=== PATIENT | female | born 1950 | race Caucasian/White ===

== ENCOUNTER → 2017-09-09 | Outpatient (CLI) | payer BC ==
[2017-09-09] MEDS: REGADENOSON 0.4 MG/5 ML DISP.SYRIN. IV (11:27)
== END | disposition home or self-care (01) ==
LOC: NM 09:31
DX: R07.89 Other chest pain (principal); R06.09 Other forms of dyspnea; I10 Essential (primary) hypertension
CPT/HCPCS: 78452; 93017; 96374; 96375; 96376; A9500; J2785

== ENCOUNTER → 2017-10-22 | Outpatient (CLI) | payer BC | END | disposition home or self-care (01) | LOC: ECHO 13:44 | DX: I07.1 Rheumatic tricuspid insufficiency (principal); R06.00 Dyspnea, unspecified | CPT/HCPCS: 93306 ==

== ENCOUNTER → 2017-11-16 | Outpatient (CLI) | payer BC | END | disposition home or self-care (01) | LOC: SLPLAB 18:33 | DX: R06.83 Snoring (principal); I10 Essential (primary) hypertension | CPT/HCPCS: 95810 ==

== ENCOUNTER → 2019-06-27 | Outpatient (CLI) | payer BC ==
[~2019-06-27] MED LIST: AMLO5TAB10 PO; IOHEXOL 180 MG/ML 10 ML VIAL. IT ONE; LIDOCAINE 1% Multi-Dose 20 ML VIAL. ID ONE; LOSA25TA54 PO; PRAV10TA2 PO
--- NOTE | 2019-06-27 16:38 | KCIC ---
CT lumbar spine exam History: Lumbar spondylolisthesis, severe back pain, previous fusion Technique: CT imaging was performed of the lumbar spine after injection for lumbar myelogram. Multiplanar reconstruction images are submitted. Exposure: One or more of the following individualized dose reduction techniques were utilized for this examination: 1. Automated exposure control 2. Adjustment of the mA and/or kV according to patient size 3. Use of iterative reconstruction technique. Comparison: May 18, 2019 outside facility MRI lumbar spine exam Findings: Lumbar vertebral body stature is maintained. There is grade 1 anterior spondylolisthesis at L5-S1, very minimal posterior subluxation L3 relative L4. Conus terminates at L1-2. Most inferior fully formed intervertebral disc space is considered L5-S1 for this report, tiny ribs bilaterally at what is considered T12. There is vacuum disc disease L2-3 L5-S1. There is moderate to severe narrowing L5-S1 intervertebral disc space, mild to moderate narrowing at L3-4 and to lesser degree at L2-3 and L4-5. There is scattered calcified plaque of the abdominal aorta, also near the origin of the left renal artery. Calcified plaque resulting in more significant stenosis of the left common iliac artery, lesser degree of narrowing of the right common iliac artery. Not fully included, there is also ectasia of the infrarenal abdominal aorta greater distally. T12-L1: Neural foramina and spinal canal are adequate. L1-L2: There is mild bilateral facet hypertrophic change. There is minimal disc osteophyte complex. Spinal canal and neural foramina are adequate. L2-L3: There is minimal disc osteophyte complex, spinal canal adequate. There is mild to moderate facet degenerative change and minimal buckling of the ligamentum flavum. Left neural foramen is overall adequate. There is mild narrowing of the right neural foramen in part from disc osteophyte complex. L3-L4: There is mild to moderate facet degenerative change and mild buckling of the ligamentum flavum. There is disc osteophyte complex slightly indenting the ventral thecal sac, spinal canal not significantly narrowed. Left neural foramen is overall adequate, minimal disc osteophyte complex inferiorly. There is [id number] narrowing of the right neural foramen by facet osteophyte and disc osteophyte complex, contact of the undersurface exiting right L3 nerve root. L4-L5: There is left laminectomy defect. There is [id number], right greater than left facet degenerative change. There is minimal disc osteophyte complex. Spinal canal is overall adequate. Disc osteophyte complex contributes to moderate narrowing of the left neural foramen, contact undersurface exiting left L4 nerve root greater in the distal left neural foramen as well as contacted in the proximal extraforaminal region. There is mild narrowing of the right neural foramen. L5-S1: There is facet degenerative change greater on the right. Spinal canal is adequate. There is left laminectomy defect. There is partial uncovering of the posterior aspect of the disc due to spondylolisthesis, superimposed disc osteophyte complex in the inferior neural foramina. There is [id number]-jp-[id number] narrowing of the inferior left neural foramen, disc osteophyte complex near the undersurface exiting left L5 nerve root greater in the distal neural foramen. There is moderate to severe narrowing of the inferior right neural foramen by disc osteophyte complex with contact undersurface exiting right L5 nerve root. Impression: 1. Most inferior fully formed intervertebral disc space is considered L5-S1 for this report. There is multilevel lumbar degenerative disease with vacuum phenomenon, greatest at L5-S1. There is no significant lumbar spinal stenosis. There is multilevel neural foramina compromise as stated greatest on the right at L5-S1, to lesser degree on the left at L5-S1 and L4-5 and on the right at L3-4. There is grade 1 anterior spondylolisthesis at L5-S1 and very mild posterior subluxation L3 relative to L4. 2. Calcified plaque results in stenoses of the common iliac arteries bilaterally greater on the left. Electronically signed by: Piyush Currie MD (06/27/2019 4:35 PM) [email or web address]
--- NOTE | 2019-06-27 16:39 | KCIC ---
Lumbar Myelogram History: Lumbar spondylolisthesis Technique: Patient was informed of the risks of the procedure to include pain, infection, bleeding, seizures, nerve root injury, and allergic reaction to the contrast. All questions were answered. Patient signed a written consent form for a lumbar myelogram. The patient was placed in a prone oblique position on the fluoroscopy table. External site of the lower back was prepped and draped in the usual sterile fashion. Betadine was utilized for cleansing solution. 1% lidocaine was utilized for local anesthesia at the anticipated site of puncture right L2-3 interlaminar space. A 19-gauge guiding needle was advanced into the soft tissues. Through the guiding needle, a 25 gauge Param needle was advanced until there was return of cerebral spinal fluid. Approximately 15 cc of Omnipaque 180 were then injected during fluoroscopic visualization. The needles were removed. Fluoroscopic spot images to include flexion and extension lateral views were acquired of the lumbar spine. The patient was transferred to the CT department for CT examination of the lumbar spine. There were no immediate complications. Fluoroscopy time: 1 minute 7 seconds, 16 images Findings: There is no evidence of myelographic block. There is transitional anatomy of the lumbar spine, most inferior fully formed intervertebral disc space considered L5-S1. There is grade 1 anterior spondylolisthesis L5-S1 slightly decreased with extension. There is very mild grade 1 posterior subluxation L3 relative to L4 fairly similar with flexion and extension. There are anterior extradural defects greatest L5-S1, L4-5, and L3-4 and to a lesser degree at L2-3 and L1-2. There is multilevel lumbar degenerative disc disease with vacuum phenomenon most notable at L4-5 and L5-S1. Impression: 1. There is mild abnormal alignment as described, most notable grade 1 spondylolisthesis L5-S1. There is multilevel lumbar degenerative disc disease. There are multilevel anterior extradural defects throughout the lumbar spine greatest L3-4 to L5-S1. Electronically signed by: Piyush Currie MD (06/27/2019 4:35 PM) [facility]
== END | disposition home or self-care (01) ==
LOC: KCIC 13:31
PROVIDERS: ATTEND Neurological Surgery
DX: M47.817 Spondylosis without myelopathy or radiculopathy, lumbosacral region (principal); M43.17 Spondylolisthesis, lumbosacral region; M48.07 Spinal stenosis, lumbosacral region; I70.8 Atherosclerosis of other arteries; M43.5X6 Other recurrent vertebral dislocation, lumbar region; M25.78 Osteophyte, vertebrae; M89.38 Hypertrophy of bone, other site
CPT/HCPCS: 72132; 72265; Q9965

== ENCOUNTER → 2019-07-12 | Outpatient (CLI) | payer BC ==
[~2019-07-12] MED LIST changes: +ACET325T9 PO; +ALBU2.5V8 IH; -IOHEXOL 180 MG/ML 10 ML VIAL. IT ONE; +IOHEXOL 180 MG/ML 10 ML VIAL. ONE; -LIDOCAINE 1% Multi-Dose 20 ML VIAL. ID ONE; +LOSA-73 PO; +METF10007 PO; +methylPREDNISolone ACETATE 40 MG/ML VIAL. ONE; +methylPREDNISolone ACETATE 80 MG/ML VIAL. ONE
--- NOTE | 2019-07-12 23:05 | PAIN ---
DATE OF SERVICE: 07/12/2019 INITIAL CONSULTATION FOR PAIN CLINIC CHIEF COMPLAINT: Low back and right lower extremity pain. HISTORY OF PRESENT ILLNESS: This is a 68-year-old female who presents with history of pain in the low back and left lower extremity, mostly in the posterior gluteus, posterior thigh, posterior calf, worse with standing, walking, changing positions. The patient reports it is better with sitting or lying down, but has been waking her from sleep 2-3 times a night. The patient reports it does not affect her bowel or bladder control, but does affect her ability to walk fairly significantly. She is not using any assistive devices, however, to ambulate. The patient reports no loss of motor function, but significant fatigability of the right lower extremity with standing, walking, changing positions, again lying down at night, which may wake her from sleep fairly frequently. The patient reports no loss of motor function, but significant fatigability on the right side only. The patient reports the pain is sharp and throbbing, intermittent in intensity, but aching and dull across the low back itself and into the posterior gluteus, posterior thigh, lateral thigh as well and into the posterior knee at times on the right side. The patient reports it is on disability 0-10, 10 being the worst, is an 8 with family home responsibilities and occupation, 10 with recreation, 9 with social activity, 0 with sexual behavior, 5 with self-care and 7 with life support activities. The patient did have a myelogram and CT scan following of the lumbar spine showing multilevel lumbar degenerative disk disease with vacuum phenomenon, greatest at L5-S1 with no significant lumbar spinal stenosis, multilevel neural foraminal compromise on the right at L5-S1 with L5-S1 moderate to severe narrowing of the inferior right neural foramen by disk osteophyte complex with contact to undersurface exiting right L5 nerve root. PAST MEDICAL HISTORY: Significant for arthritis, hypertension, COPD; type 2 diabetes, but non-insulin dependent; cigarette smoking, quit 9 years ago; sleep apnea. PAST SURGICAL HISTORY: Previous surgeries include hysterectomy, cholecystectomy, lumbar surgery in 2013 and esophageal surgery as a child. CURRENT MEDICATIONS: Include amlodipine, pravastatin, Tylenol, losartan, metformin, and ProAir inhaler. ALLERGIES: The patient has no known drug allergies. FAMILY HISTORY: Significant for no major medical problems or conditions that she lists, but by history, it shows Alzheimer's disease and cancers. SOCIAL HISTORY: The patient is retired. She is , does not smoke, drinks alcohol, maybe, 1-2 times a month socially. Denies any illegal, illicit or recreational drugs, and lives locally in [place], [place]. REVIEW OF SYSTEMS: The patient's review of systems is positive for those items mentioned in history of present illness. All systems reviewed and otherwise negative. It is complete, full and well documented on the patient's chart. PHYSICAL EXAMINATION: VITAL SIGNS: The patient's blood pressure is 151/90, pulse is 98, respirations 18, temperature 97.7 degrees Fahrenheit, height 65 inches, and weight is 252 pounds. GENERAL: The patient is awake, alert, oriented, appropriate, very pleasant demeanor. HEENT: Head shows normocephalic, atraumatic. Extraocular movements are intact and symmetrical. Oral cavity: Mucous membranes moist and pink. Dentition is intact. NECK: Shows anterior throat supple without palpable lymphadenopathy noted. Swallow reflex symmetrical. CHEST: Shows normal on inspection. Breath sounds are clear bilaterally. HEART: Shows S1, S2 clear. No murmurs auscultated. ABDOMEN: Soft, nontender, nondistended. No palpable organomegaly is noted. No rebound or guarding demonstrated. BACK: Shows spine grossly in the midline. Normal appearing thoracic kyphosis and some slight flattening of lumbar lordotic curvature with well-healed surgical scar noted. Lumbar paraspinous muscle shows symmetrical on inspection, on palpation shows some moderate tenderness, but only diffusely bilaterally in the lower lumbar distribution without atrophy, hypertrophy, without trigger points, without asymmetry. No radiation of pain is demonstrated with rotational motion, which was performed greater than 10 degrees right and left as well as extension greater than 10 degrees, forward flexion 45 degrees without significant pain or discomfort. No tenderness over the spinous processes, sacrum or sacroiliac regions. EXTREMITIES: The patient's lower extremities show deep tendon reflexes at 1+ in patellar and tendo calcaneus tendons. Motor exam is strong with dorsiflexion, extension, quadriceps and hamstring flexion at 5/5 and equal. Peripheral pulses are 1+ posterior tibia. No peripheral edema is noted. Lower extremities are warm and dry to touch, equal in color and appearance. Straight leg raise noted to be negative for reproduction of radicular symptoms bilaterally. Gaenslen's and Armando's maneuvers are negative bilaterally as well. The patient's skin shows warm and dry, good turgor. No edema. No sores, rashes or bruising throughout. The patient is able to stand, stand on her toes without significant difficulty or loss of balance, walks with a normal appearing gait for short distance in the office. She does not use any assistive devices to ambulate as well. IMPRESSION: 1. This is a 68-year-old female with approximate 4-5 month history of low back and right lower extremity pain. 2. CT myelogram and MRI scan as noted. 3. History of arthritis. 4. Diabetes. 5. Hypertension. 6. Chronic obstructive pulmonary disease. PLAN: Options were discussed with the patient including conservative medical managements, continued physical therapies, interventional techniques. She would like to pursue interventional techniques. We discussed lumbar epidural steroid injection using description as well as anatomical models to describe the procedure. Risks were then discussed including, but not limited to bleeding, infection, possibility of epidural hematoma, subsequent neurological compromise, dural puncture, headaches, spinal cord and/or nerve damage, side effects of steroid medication and poor results regarding pain control. The patient understands and wished to proceed. The patient will return to clinic in approximately 2 weeks for followup. She was counseled on return appointment, activity level and side effects to be aware of. DIAGNOSES: Lumbar radiculopathy with lumbar degenerative disk disease and post-lumbar laminectomy syndrome. PROCEDURE: Lumbar epidural steroid injection with translaminar approach at L5-S1 level using C-arm fluoroscopic guidance under sterile prep and drape using local anesthetic. MEDICATION INJECTED: A total of 120 mg of Depo-Medrol plus 10 mL of preservative-free normal saline and 2 mL of contrast. CONDITION AT DISCHARGE: Stable. The patient tolerated procedure well, had no complications. KASEY MORGAN MD DR: ANNE/supa JOB#: [id number] / [id number] SID Chin MD
== END ==
LOC: PNCL 10:08
PROVIDERS: ATTEND Anesthesiology
DX: M51.16 Intervertebral disc disorders with radiculopathy, lumbar region (principal); M96.1 Postlaminectomy syndrome, not elsewhere classified; G47.30 Sleep apnea, unspecified; I10 Essential (primary) hypertension; J44.9 Chronic obstructive pulmonary disease, unspecified; E11.9 Type 2 diabetes mellitus without complications; Z79.84 Long term (current) use of oral hypoglycemic drugs; Z87.39 Personal history of other diseases of the musculoskeletal system and connective tissue; Z87.891 Personal history of nicotine dependence; Z72.89 Other problems related to lifestyle; Z90.710 Acquired absence of both cervix and uterus; Z90.49 Acquired absence of other specified parts of digestive tract; Z98.890 Other specified postprocedural states
CPT/HCPCS: 62323; J1030; J1040; Q9965

== ENCOUNTER → 2019-07-26 | Outpatient (CLI) | payer BC ==
--- NOTE | 2019-07-26 12:05 | PAIN ---
DATE OF SERVICE: 07/26/2019 PROGRESS NOTE FOR PAIN CLINIC DIAGNOSES: Lumbar radiculopathy with lumbar degenerative disk disease and lumbar post-laminectomy syndrome. SUBJECTIVE: The patient is a 68-year-old female who returns for followup status post lumbar epidural steroid injection x 1. The patient reports about 70% improvement after the injection with pain returning only about 4 days ago. The patient reports the pain is still in the right lower extremity, posterior gluteus, posterior thigh, posterior calf, but also more noticeable now in the low back itself and into the left side as well in the back itself and not in the left leg. The patient reports it is aching and sharp, rated as 6 on a scale of 10, at its worst over the past week 4, on average 4, at its least is at 4 today. The patient reports no new motor or sensory deficit. She has been increasing her activity, walking, doing greater distances, also doing household activities, taking care of her grandchildren with much greater ease and comfort. The patient reports she is sleeping well at night, the pain does not disturb her from sleep at least. The patient reports no new motor or sensory deficits, no new bowel or bladder incontinence. PHYSICAL EXAMINATION: VITAL SIGNS: The patient's blood pressure 130/85, pulse 74, respirations 18, temperature 97.4 degrees Fahrenheit, height is 5 feet 5 inches and weight is 249 pounds. GENERAL: The patient is awake, alert, oriented, appropriate, very pleasant demeanor. HEENT: Head shows normocephalic, atraumatic. Extraocular movements are intact and symmetrical. Oral cavity: Mucous membranes are moist and pink. Dentition is intact. NECK: Shows anterior throat supple without palpable lymphadenopathy noted. Swallow reflex symmetrical. CHEST: Shows normal on inspection. Breath sounds clear to auscultation bilaterally. HEART: Shows S1, S2 clear. No murmurs auscultated. ABDOMEN: Soft, nontender, nondistended. No palpable organomegaly is noted. No rebound or guarding demonstrated. BACK: Shows spine grossly in the midline. Normal appearing thoracic kyphosis and minor flattening of lumbar lordotic curvature. Lumbar paraspinous muscle shows symmetrical on inspection, on palpation shows some moderate tenderness diffusely, but only diffusely without significant radiation. The patient has good rotational motion of lumbar spine, both laterally as well as extension and flexion without significant pain reported. EXTREMITIES: Lower extremities show deep tendon reflexes 1+ in the patellar and tendo calcaneus tendons. Motor exam is approximately 5 on a scale of 5 with dorsiflexion, extension, quadriceps and hamstring flexion symmetrical. Peripheral pulses are 1+ in posterior tibia. No peripheral edema is noted. IMPRESSION: Options were discussed with the patient. The patient's old chart was reviewed as her current medication regimen updated. Current review of systems updated today as well. We will proceed with a second in a series of lumbar epidural steroid injection today with fluoroscopic guidance. Risks were again discussed including, but not limited to bleeding, infection, possibility of epidural hematoma, subsequent neurological compromise, dural puncture, headaches, spinal cord and/or nerve damage, side effects of steroid medication and poor results regarding pain control. The patient understands and wished to proceed. The patient will return to the clinic in approximately 2 weeks for followup. She was counseled as to return appointment, activity level and side effects to be aware of. DIAGNOSIS: Lumbar radiculopathy with lumbar degenerative disk disease and lumbar post-laminectomy syndrome. PROCEDURE: Lumbar epidural steroid injection, translaminar approach, L5-S1 level using C-arm fluoroscopic guidance under sterile prep and drape using local anesthetic. MEDICATION INJECTED: A total of 120 mg Depo-Medrol plus 10 mL of preservative-free normal saline and 2 mL of contrast. CONDITION AT DISCHARGE: Stable. The patient tolerated procedure well, had no complications. KASEY MORGAN MD DR: ANNE/supa JOB#: [id number] / [id number]
== END ==
LOC: PNCL 10:28
PROVIDERS: ATTEND Anesthesiology
DX: M51.16 Intervertebral disc disorders with radiculopathy, lumbar region (principal); M96.1 Postlaminectomy syndrome, not elsewhere classified
CPT/HCPCS: 62323; J1030; J1040; Q9965

== ENCOUNTER → 2019-10-12 | Outpatient (CLI) | payer BC ==
--- NOTE | 2019-10-12 13:31 | PAIN ---
DATE OF SERVICE: 10/12/2019 PROGRESS NOTE FOR PAIN CLINIC DIAGNOSES: Lumbar radiculopathy with lumbar degenerative disk disease and lumbar post-laminectomy syndrome. HISTORY OF PRESENT ILLNESS: This is 68-year-old female who returns for followup status post lumbar epidural steroid injections x 2, most recently seen 07/26/2019, patient did very well with about 80% improvement after the last injection. Pain is returning now over the past 2-3 weeks in the low back, especially in the right lower extremity, posterior gluteus, posterior thigh and posterior calf. The patient reports no loss of motor function, but significant tenderness and pain in the low back and right leg. The patient reports it is aching and tight, severe at times. The patient reports the pain is a 9 on a scale of 10 at its worst over the past week, 8 on average, 7 at its least and is a 7 today. The patient reports no new motor or sensory deficits. She was originally increasing distance walking, doing better with activities at home with greater ease and comfort, sleeping better at night. It has been awakening her from sleep now about every 2-3 hours. The patient reports no new motor or sensory deficits, no bowel or bladder incontinence or other complaints. PHYSICAL EXAMINATION: VITAL SIGNS: The patient's blood pressure 139/80, pulse 101, respirations are 24, temperature is 98.0 degrees Fahrenheit, weight is 258 pounds. GENERAL: The patient is awake, alert, oriented, appropriate, very pleasant demeanor. HEENT: Exam shows normocephalic, atraumatic. Extraocular movements are intact and symmetrical. Oral cavity shows mucous membranes moist and pink. Dentition is intact. NECK: Shows anterior throat supple without palpable lymphadenopathy noted. Swallow reflex symmetrical. CHEST: Shows normal on inspection. Breath sounds are clear bilaterally. HEART: Shows S1, S2 clear. No murmurs auscultated. ABDOMEN: Soft, nontender, nondistended. BACK: Shows spine grossly in the midline. Normal appearing thoracic kyphosis and minor flattening of lumbar lordotic curvature with well-healed surgical scar noted. Lumbar paraspinous muscle shows symmetrical on inspection, with palpation shows some moderate tenderness diffusely, but only diffusely without significant radiation. The patient has good rotational motion of lumbar spine both laterally as well as extension and flexion without significant difficulty. EXTREMITIES: The patient's lower extremities show deep tendon reflexes at 1+ in the patellar and tendo calcaneus tendons. Motor exam is strong with 5/5 dorsiflexion, extension, quadriceps and hamstring flexion symmetrical. Peripheral pulses are 1+ posterior tibia. No peripheral edema is noted. Options were discussed with the patient. The patient's old chart was reviewed as her current medication regimen updated. Current review of systems updated today as well. We will proceed with a third in the series of lumbar epidural steroid injection today with fluoroscopic guidance. Risks were again discussed including, but not limited to bleeding, infection, possibility of epidural hematoma, subsequent neurological compromise, dural puncture, headaches, spinal cord and/or nerve damage, side effects of steroid medication and poor results regarding pain control. The patient understands and wished to proceed. The patient will return to clinic in approximately 2 weeks for followup. She was counseled on return appointment, activity level and side effects to be aware of. DIAGNOSES: Lumbar radiculopathy with lumbar degenerative disk disease and lumbar post-laminectomy syndrome. PROCEDURE: Lumbar epidural steroid injection, translaminar approach at L5-S1 level using C-arm fluoroscopic guidance under sterile prep and drape using local anesthetic. MEDICATION INJECTED: A total of 120 mg Depo-Medrol plus 10 mL preservative-free normal saline and 2 mL of contrast. CONDITION AT DISCHARGE: Stable. The patient tolerated the procedure well, had no complications. KASEY MORGAN MD DR: ANNE/supa JOB#: [id number] / [id number]
== END ==
LOC: PNCL 12:04
PROVIDERS: ATTEND Anesthesiology
DX: M51.16 Intervertebral disc disorders with radiculopathy, lumbar region (principal); M96.1 Postlaminectomy syndrome, not elsewhere classified
CPT/HCPCS: 62323; J1030; J1040; Q9965

== ENCOUNTER → 2020-06-27 | Outpatient (CLI) | payer BC ==
[~2020-06-27] MED LIST changes: +AMLO-186 PO; -AMLO5TAB10 PO; -methylPREDNISolone ACETATE 80 MG/ML VIAL. ONE
--- NOTE | 2020-06-27 14:35 | PDOC ---
Progress Note - Pain Clinic Date of Service: DOS: DATE: 06/27/20 TIME: 14:32 Diagnosis: Dx: Lumbar radiculopathy with lumbar degenerative disc disease and lumbar post laminectomy syndrome History or Present Illness: HPI: 69-year-old female returns for follow-up status post lumbar epidural steroid injections most recently September 2019 patient doing well about 80% improvement for several months following. Patient reports over the past 2 months the pain is increased in the low back and the right lower extremity mostly in the posterior gluteus posterior thigh posterior calf and across the low back left and right patient reports is a 10 on scale 10 is worse over the past week 8 on average 7 its least and is an 8 today. Patient reports aching sharp tight severe on and off in intensity better with sitting or laying down but does awaken her from sleep now over the past month or 2 about 5 to 6 hours. Patient reports no new motor or sensory deficits no bowel or bladder incontinence. Patient reports she has trouble walking to do some exercising but it is becoming too difficult secondary to the pain in her low back and right leg. Physical Exam: VS: Blood pressure is 145/71 pulse 98 respirations are 18 temperature 98.0 F height is 5 feet 5 inches weight 246 pounds PE: PHYSICAL EXAMINATION: GENERAL: The patient is awake, alert, oriented, appropriate, very pleasant demeanor HEENT: Shows normocephalic, atraumatic. Extraocular movements are intact and symmetrical. Oral cavity: Mucous membranes moist and pink. NECK: Shows anterior throat supple without palpable lymphadenopathy noted. Swallow reflex symmetrical. CHEST: Shows normal on inspection. Breath sounds are clear bilaterally, no rales rhonchi or wheezes auscultated. HEART: Shows S1, S2 clear. No murmurs auscultated. ABDOMEN: Soft, nontender, nondistended, obese. No palpable organomegaly is noted. No rebound or guarding demonstrated. BACK: Shows spine grossly in the midline. Normal-appearing cervical lordotic curvature. There is slightly increased thoracic kyphosis, some flattening of the lumbar lordotic curvature. Well-healed midline surgical scar is noted. Lumbar paraspinous muscles show symmetrical on inspection, on palpation shows some moderate tenderness diffusely throughout the upper, middle and lower distribution of the paraspinous muscles bilaterally and also into the lower thoracic paraspinous musculature, firm and tender, but without specific trigger points, without radiation of pain. The patient has good rotational motion of the lumbar spine, both laterally as well as extension and flexion without significant difficulty. No tenderness over the spinous processes, sacrum or sacroiliac regions. EXTREMITIES: Lower extremities show deep tendon reflexes 1+ in the patellar and tendo calcaneus tendons. Motor exam is 5 on a scale of 5 with right dorsiflexion, extension, quadriceps and hamstring flexion and 5/5 on the left. Peripheral pulses are 1+ posterior tibial. No peripheral edema is noted bilaterally. Lower extremities are warm and dry to touch, equal in color and appearance. SKIN: Shows warm and dry, good turgor. No edema. No sores, rashes or bruising throughout. Procedure: Procedure: Options were discussed with the patient. Patient will chart was reviewed as her current medication regimen updated current review of systems updated today as well. We will proceed with a lumbar epidural steroid injection as the first in the series with fluoroscopic guidance. Risks were discussed including but not limited to: Bleeding, infection, possibility of epidural hematoma and subsequent neurological compromise, dural puncture, headaches, spinal cord and/or nerve damage, side effects of steroid medication, and poor results regarding pain con trol. Patient understands and wished to proceed. Patient return to clinic in approximate 2 weeks for follow-up, was counseled as return appointment activity level, and side effects to be aware of. Medication Injected: Med Injected: Procedure is lumbar epidural steroid injection under local anesthetic using sterile prep and drape at the L5-S1 level using C-arm fluoroscopic guidance in both AP and lateral views medications injected is 120 mg Depo-Medrol + 10 mL preservative-free normal saline and 2 mL contrast- condition at discharge is stable patient tolerated procedure well had no complications. Condition at Discharge: Condition at Discharge: Condition at discharge stable, patient tolerated procedure well and had no complications. KASEY MORGAN MD Jun 27, 2020 14:35
--- NOTE | 2020-06-27 14:35 | PDOC4 ---
PROCEDURE Procedure Patient was consented for lumbar epidural steroid injection. Risks were dis cussed including but not limited to: Bleeding, infection, possibility of epidural hematoma and subsequent neurological compromise, dural puncture, headaches, spinal cord and/or nerve damage, side effects of steroid medication, and poor results regarding pain control. Patient understands and wished to proceed. Procedure is lumbar epidural steroid injection under local anesthetic using sterile prep and drape at the L5-S1 level using C-arm fluoroscopic guidance in both AP and lateral views medications injected is 120 mg Depo-Medrol + 10 mL preservative-free normal saline and 2 mL contrast- condition at discharge is stable patient tolerated procedure well had no complications. KASEY MORGAN MD Jun 27, 2020 14:35
== END | disposition home or self-care (01) ==
LOC: PNCL 13:20
PROVIDERS: ATTEND Anesthesiology
DX: M51.16 Intervertebral disc disorders with radiculopathy, lumbar region (principal); M96.1 Postlaminectomy syndrome, not elsewhere classified; Z79.899 Other long term (current) drug therapy; Z79.84 Long term (current) use of oral hypoglycemic drugs
CPT/HCPCS: 62323; J1030; Q9965

== ENCOUNTER → 2020-07-13 | Outpatient (CLI) | payer BC ==
[~2020-07-13] MED LIST changes: +methylPREDNISolone ACETATE 80 MG/ML VIAL. ONE
--- NOTE | 2020-07-13 11:08 | PDOC ---
Progress Note - Pain Clinic Date of Service: DOS: DATE: 07/13/20 TIME: 11:04 Diagnosis: Dx: Lumbar radiculopathy lumbar degenerative disc disease and lumbar postlaminectomy syndrome History or Present Illness: HPI: 69-year-old female returns follow-up status post lumbar epidural steroid traction x1. Patient reports about 25% improvement overall significant decrease in pain in the low back and right lower extremity. Patient reports no new motor or sensory deficits no new bowel or bladder incontinence or other complaints. Patient reports an increase in distance walking with greater ease and comfort try with greater ease does not awaken her from sleep at this time. Patient rates her pain a 7 on scale 10 is worse over the past week 6 at its least and a 7 on average and is a 7 today. Patient reports no new motor or sensory deficits no new bowel or bladder incontinence or other complaints. Patient cried the pain is aching and sharp in the back and tight in the back as well as rating the posterior gluteus right side posterior thigh as well without deficits. Physical Exam: VS: Blood pressure 116/64 pulse 96 respirations 20 temperature is 98.3 F weight is 2 5 0 pounds PE: PHYSICAL EXAMINATION: GENERAL: The patient is awake, alert, oriented, appropriate, very pleasant demeanor HEENT: Shows normocephalic, atraumatic. Extraocular movements are intact and symmetrical. NECK: Shows anterior throat supple without palpable lymphadenopathy noted. Swallow reflex symmetrical. CHEST: Shows normal on inspection. Breath sounds are clear bilaterally. HEART: Shows S1, S2 clear. No murmurs auscultated. ABDOMEN: Soft, nontender, nondistended, obese. No palpable organomegaly is noted. BACK: Shows spine grossly in the midline. Normal-appearing cervical lordotic curvature. There is slightly increased thoracic kyphosis, some minor flattening of the lumbar lordotic curvature. Lumbar paraspinous muscles show symmetrical on inspection, on palpation shows some moderate tenderness diffusely throughout the upper, middle and lower distribution of the paraspinous muscles without specific trigger points, without radiation of pain. The patient has good rotational motion of the lumbar spine, both laterally as well as extension and flexion without significant difficulty. EXTREMITIES: Lower extremities show deep tendon reflexes 1+ in the patellar and tendo calcaneus tendons. Motor exam is 5 on a scale of 5 with right dorsiflexion, extension, quadriceps and hamstring flexion and 5/5 on the left. Peripheral pulses are 1+ posterior tibial. No peripheral edema is noted bilaterally. Lower extremities are warm and dry to touch, equal in color and appearance. SKIN: Shows warm and dry, good turgor. No edema. No sores, rashes or bruising throughout. Procedure: Procedure: Options were discussed with the patient. Patient chart reviews her current medication regimen updated current review of systems updated today as well. We will proceed with a second in the series lumbar epidural steroid injection today with fluoroscopic guidance. Risks were discussed including but not limited to: Bleeding, infection, possibility of epidural hematoma and subsequent neurological compromise, dural puncture, headaches, spinal cord and/or nerve damage, side effects of steroid medication, and poor results regarding pain control. Patient understands and wished to proceed. Patient will return to clinic in approximate 2 weeks for follow-up, was counseled as to return appointment activity level and side effects to be aware of. Medication Injected: Med Injected: Procedure is lumbar epidural steroid injection under local anesthetic using sterile prep and drape at the L5-S1 level using C-arm fluoroscopic guidance in both AP and lateral views medications injected is 120 mg Depo-Medrol + 10 mL preservative-free normal saline and 2 mL contrast- condition at discharge is stable patient tolerated procedure well had no complications. Condition at Discharge: Condition at Discharge: Condition at discharge stable, patient either procedure well, and had no complications. KASEY MORGAN MD Jul 13, 2020 11:08
--- NOTE | 2020-07-13 11:08 | PDOC4 ---
PROCEDURE Procedure Patient was consented for lumbar epidural steroid injection. Risks were dis cussed including but not limited to: Bleeding, infection, possibility of epidural hematoma and subsequent neurological compromise, dural puncture, headaches, spinal cord and/or nerve damage, side effects of steroid medication, and poor results regarding pain control. Patient understands and wished to proceed. Procedure is lumbar epidural steroid injection under local anesthetic using sterile prep and drape at the L5-S1 level using C-arm fluoroscopic guidance in both AP and lateral views medications injected is 120 mg Depo-Medrol + 10 mL preservative-free normal saline and 2 mL contrast- condition at discharge is stable patient tolerated procedure well had no complications. KASEY MORGAN MD Jul 13, 2020 11:08
== END | disposition home or self-care (01) ==
LOC: PNCL 10:01
PROVIDERS: ATTEND Anesthesiology
DX: M51.16 Intervertebral disc disorders with radiculopathy, lumbar region (principal); M96.1 Postlaminectomy syndrome, not elsewhere classified; Z79.899 Other long term (current) drug therapy
CPT/HCPCS: 62323; J1030; J1040; Q9965

== ENCOUNTER → 2020-10-17 | Outpatient (CLI) | payer BC, MEDICARE ==
--- NOTE | 2020-10-17 13:01 | PDOC ---
Progress Note - Pain Clinic Date of Service: DOS: DATE: 10/17/20 TIME: 12:58 Diagnosis: Dx: Lumbar radiculopathy with lumbar degenerative disc disease and lumbar postlaminectomy syndrome History or Present Illness: HPI: 69-year-old female returns follow-up status post lumbar epidurals or injections x2 last seen July 13, 2020 patient did very well with about a 70% improvement for about a month following the injection patient reports the pain is returning down the low back and right lower extremity posterior gluteus post erior thigh posterior calf worse with walking standing changing positions patient reports initially she was in much better with walking and changing positions doing household activities travel with greater ease and comfort still better with sitting or laying down does not awaken her from sleep at night patient rates the pain a 10 on scale 10 is worse over the past week 8 on average 8 its least is an 8 today patient scribes as aching and tight in the low back radiating shooting in the right lower extremity posteriorly on and off in intensity can be severe with extended standing or walking or bending repetitive lifting motions. Patient reports he been taking care of her small grandchildren over the past few weeks and this has increased the pain with increased activity. Patient reports no new motor or sensory deficits no new bowel or bladder incontinence or other complaints. Physical Exam: VS: Blood pressure is 137/75 pulse 107 respirations 18 temperature 98.9 F height 5 feet 5 inches weight is 250 pounds PE: PHYSICAL EXAMINATION: GENERAL: The patient is awake, alert, oriented, appropriate, very pleasant demeanor HEENT: Shows normocephalic, atraumatic. Extraocular movements are intact and symmetrical. Oral cavity: Mucous membranes moist and pink. NECK: Shows anterior throat supple without palpable lymphadenopathy noted. Swallow reflex symmetrical. CHEST: Shows normal on inspection. Breath sounds are clear bilaterally. HEART: Shows S1, S2 clear. No murmurs auscultated. ABDOMEN: Soft, nontender, nondistended, obese. No palpable organomegaly is noted. No rebound or guarding demonstrated. BACK: Shows spine grossly in the midline. Normal-appearing cervical lordotic curvature. There is slightly increased thoracic kyphosis, some minor flattening of the lumbar lordotic curvature. Lumbar paraspinous muscles show symmetrical on inspection, on palpation shows some moderate tenderness diffusely throughout the upper, middle and lower distribution of the paraspinous muscles without specific trigger points, without radiation of pain. The patient has good rotational motion of the lumbar spine, both laterally as well as extension and flexion without significant difficulty. No tenderness over the spinous processes, sacrum or sacroiliac regions. EXTREMITIES: Lower extremities show deep tendon reflexes 1+ in the patellar and tendo calcaneus tendons. Motor exam is 5 on a scale of 5 with right dorsiflexion, extension, quadriceps and hamstring flexion and 5/5 on the left. Peripheral pulses are 1+ posterior tibial. No peripheral edema is noted bilaterally. Lower extremities are warm and dry. SKIN: Shows warm and dry, good turgor. No edema. No sores, rashes or bruising throughout. Procedure: Procedure: Options were discussed with the patient. Patient's old chart was reviewed as her current medication regimen updated current review of systems updated today as well. We will proceed with a lumbar epidural steroid injection states the th ird in the series with fluoroscopic guidance. Risks were discussed including but not limited to: Bleeding, infection, possibility of epidural hematoma and subsequent neurological compromise, dural puncture, headaches, spinal cord and/or nerve damage, side effects of steroid medication, and poor results regarding pain control. Patient understands and wished to proceed. Patient wi ll return to the clinic in approximate 2 weeks for follow-up, was counseled as to return appointment activity level and side effects to be aware of. Medication Injected: Med Injected: Procedure is lumbar epidural steroid injection under local anesthetic using sterile prep and drape at the L5-S1 level using C-arm fluoroscopic guidance in both AP and lateral views medications injected is 120 mg Depo-Medrol +10mL preservative-free normal saline and 2 mL contrast- condition at discharge is stable patient tolerated procedure well had no complications. Condition at Discharge: Condition at Discharge: Condition at discharge stable, patient tolerated the procedure well and had no complications. KASEY MORGAN MD October 17, 2020 13:01
--- NOTE | 2020-10-17 13:01 | PDOC4 ---
PROCEDURE Procedure Patient was consented for lumbar epidural steroid injection. Risks were dis cussed including but not limited to: Bleeding, infection, possibility of epidural hematoma and subsequent neurological compromise, dural puncture, headaches, spinal cord and/or nerve damage, side effects of steroid medication, and poor results regarding pain control. Patient understands and wished to proceed. Procedure is lumbar epidural steroid injection under local anesthetic using sterile prep and drape at the 5 S1 level using C-arm fluoroscopic guidance in both AP and lateral views medications injected is 120 mg Depo-Medrol +10mL preservative-free normal saline and 2 mL contrast- condition at discharge is stable patient tolerated procedure well had no complications. KASEY MORGAN MD October 17, 2020 13:01
== END | disposition home or self-care (01) ==
LOC: PNCL 11:40
PROVIDERS: ATTEND Anesthesiology
DX: M51.16 Intervertebral disc disorders with radiculopathy, lumbar region (principal); M96.1 Postlaminectomy syndrome, not elsewhere classified; Z79.899 Other long term (current) drug therapy
CPT/HCPCS: 62323; J1030; J1040; Q9965

== ENCOUNTER → 2020-11-26 | Outpatient (CLI) | payer BC ==
[~2020-11-26] MED LIST changes: -IOHEXOL 180 MG/ML 10 ML VIAL. ONE; -methylPREDNISolone ACETATE 40 MG/ML VIAL. ONE; -methylPREDNISolone ACETATE 80 MG/ML VIAL. ONE
--- NOTE | 2020-11-26 12:37 | PDOC ---
Progress Note - Pain Clinic Date of Service: DOS: DATE: 11/26/20 TIME: 12:34 Diagnosis: Dx: Lumbar radiculopathy with lumbar degenerative disease and lumbar postlaminectomy syndrome History or Present Illness: HPI: 30-year-old female returns follow-up status post lumbar epidural steroid injections x3 most recently October 17, 2020. Patient did very well about 75% improvement pain returning down the low back and the right greater than left lower extremity patient reports initially doing much better with distance walking doing household activities try with greater ease and comfort sleeping better now the pain is beginning to return in the low back and right leg posterior gluteus posterior thigh posterior calf patient reports some in the hip as well mostly in the back and leg patient reports is aching and sharp at times in the back tight in the back as well as shooting and stabbing in the lower extremity patient reports it can be severe with standing walking better with sitting or laying down generally does not awaken from sleep at night but has over the past few weeks about once every 5 hours patient rates her pain as a 9 on scale 10 is worse over the past week 7 on average 6 its least and 7 today. Patient reports no new motor or sensory deficits no new bowel or bladder incontinence or other complaints. Physical Exam: VS: Blood pressure is 114/66 pulse 91 respirations 18 temperature 98.3 F height is 5 foot limits weight 247 pounds PE: PHYSICAL EXAMINATION: GENERAL: The patient is awake, alert, oriented, appropriate, very pleasant in demeanor HEENT: Shows normocephalic, atraumatic. Extraocular movements are intact and symmetrical. Oral cavity: Mucous membranes moist and pink. Dentition is intact. NECK: Shows anterior throat supple without palpable lymphadenopathy noted. Swallow reflex symmetrical. CHEST: Shows normal on inspection. Breath sounds are clear bilaterally, no rales or rhonchi. HEART: Shows S1, S2 clear. No murmurs auscultated. ABDOMEN: Soft, nontender, nondistended, obese. BACK: Shows spine grossly in the midline. Normal-appearing cervical lordotic curvature. There is slightly increased thoracic kyphosis, some minor flattening of the lumbar lordotic curvature. Lumbar paraspinous muscles show symmetrical on inspection, on palpation shows some moderate tenderness diffusely throughout the upper, middle and lower distribution of the paraspinous muscles without specific trigger points, without radiation of pain. The patient has good rotational motion of the lumbar spine, both laterally as well as extension and flexion without significant difficulty. No tenderness over the spinous proces ses, sacrum or sacroiliac regions. EXTREMITIES: Lower extremities show deep tendon reflexes 1 to in the patellar and tendo calcaneus tendons. Motor exam is 5 on a scale of 5 with right dorsiflexion, extension, quadriceps and hamstring flexion and 5/5 on the left. Peripheral pulses are 1+ posterior tibial. No peripheral edema is noted bilaterally. Lower extremities are warm and dry. SKIN: Shows warm and dry, good turgor. No edema. No sores, rashes or bruising throughout. Procedure: Procedure: Options were discussed with the patient. Patient's old chart was reviewed as her current case regimen updated current review of systems updated today as well. We will proceed with lumbar epidural steroid injection once 6 months as allowed from her initial injection which will be December 25, 2020. In the meantime we discussed other options and patient will continue with stretching strengthening exercises daily as well as oral analgesics also will add Medrol Dosepak patient was given instructions well side effects to be aware of with the medication. Patient will return to clinic in approximately 4 weeks for follow- up and plan on lumbar epidural steroid injection at that time. Medication Injected: Med Injected: None Condition at Discharge: Condition at Discharge: Condition at discharge is stable. KASEY MORGAN MD Nov 26, 2020 12:37
== END | disposition home or self-care (01) ==
LOC: PNCL 11:32
PROVIDERS: ATTEND Anesthesiology
DX: M51.16 Intervertebral disc disorders with radiculopathy, lumbar region (principal); M96.1 Postlaminectomy syndrome, not elsewhere classified; Z79.899 Other long term (current) drug therapy
CPT/HCPCS: 99212; G0463

== ENCOUNTER → 2020-12-25 | Outpatient (CLI) | payer BC, MEDICARE ==
[~2020-12-25] MED LIST changes: +IOHEXOL 180 MG/ML 10 ML VIAL. ONE; +methylPREDNISolone ACETATE 40 MG/ML VIAL. ONE; +methylPREDNISolone ACETATE 80 MG/ML VIAL. ONE
--- NOTE | 2020-12-25 12:20 | PDOC ---
Progress Note - Pain Clinic Date of Service: DOS: DATE: 12/25/20 TIME: 12:16 Diagnosis: Dx: Lumbar radiculopathy with lumbar degenerative disease and lumbar postlaminectomy syndrome History or Present Illness: HPI: 70-year-old female returns for follow-up status post lumbar epidural steroid injections most recently October 17, 2020. Patient did very well with about 70% improvement pain was returning we tried a Medrol Dosepak after that she did very well with this for about a week and a half and the pain is returning down the low back and the knee right lower extremity greater than the left. Patient reports is bilateral but more on the right side patient reports that the low back rating the posterior gluteus posterior thigh posterior calves mostly in the thighs and hips patient reports an 8 on scale 10 is worse over the past week 6 on average 6 its least is a 6 today patient describes as aching sharp tight in the back cramping and stabbing radiating into the lower extremities again worse on the right side worse with walking standing changing positions. Initially she was in much better with distance walking doing household activities work activities travel with greater ease and comfort sleeping better at night patient reports is still better with sitting or laying down does not awaken her from sleep most nights. Patient reports no new bowel or bladder incontinence. Physical Exam: VS: Blood pressure is 130/88 pulse 90 respirations 18 there is 98.1 F height is 5 feet 5 inches weight is 246 pounds PE: PHYSICAL EXAMINATION: GENERAL: The patient is awake, alert, oriented, appropriate, very pleasant in demeanor. HEENT: Shows normocephalic, atraumatic. Extraocular movements are intact and symmetrical. Oral cavity: Mucous membranes moist and pink. NECK: Shows anterior throat supple without palpable lymphadenopathy noted. Swallow reflex symmetrical. CHEST: Shows normal on inspection. Breath sounds are clear bilaterally, no rales rhonchi or wheezes auscultated. HEART: Shows S1, S2 clear. No murmurs auscultated. ABDOMEN: Soft, nontender, nondistended, obese. No palpable organomegaly is noted. BACK: Shows spine grossly in the midline. Normal-appearing cervical lordotic curvature. There is slightly increased thoracic kyphosis, some minor flattening of the lumbar lordotic curvature. Lumbar paraspinous muscles show symmetrical on inspection, on palpation shows some moderate tenderness diffusely throughout the upper, middle and lower distribution of the paraspinous muscles without specific trigger points, without radiation of pain. The patient has good rotational motion of the lumbar spine, both laterally as well as extension and flexion without significant difficulty. No tenderness over the spinous processes, sacrum or sacroiliac regions. EXTREMITIES: Lower extremities show deep tendon reflexes 1+ in the patellar and tendo calcaneus tendons. Motor exam is 5 on a scale of 5 with right dorsiflexion, extension, quadriceps and hamstring flexion and 5/5 on the left. Peripheral pulses are 1 posterior tibial. No peripheral edema is noted bilaterally. Lower extremities are warm and dry. SKIN: Shows warm and dry, good turgor. No edema. No sores, rashes or bruising throughout. Procedure: Procedure: Options discussed with patient. Patient's old chart was reviewed as her current medication regimen updated current review of systems updated today as well. We will proceed with a lumbar epidural steroid injection today with fluoroscopic guidance. Risks were discussed including but not limited to: Bleeding, infection, possibility of epidural hematoma and subsequent neurological co mpromise, dural puncture, headaches, spinal cord and/or nerve damage, side effects of steroid medication, and poor results regarding pain control. Patient understands and wished to proceed. Return to clinic in approximately 4 weeks for follow-up, was counseled as to return appointment active level and side effects to be aware of. Medication Injected: Med Injected: Procedure is lumbar epidural steroid injection under local anesthetic using sterile prep and drape at the L5-S1 level using C-arm fluoroscopic guidance in both AP and lateral views medications injected is 120 mg Depo-Medrol +10mL preservative-free normal saline and 2 mL contrast- condition at discharge is stable patient tolerated procedure well had no complications. Condition at Discharge: Condition at Discharge: Condition at discharge stable, patient already procedure well and had no complications. KASEY MORGAN MD Dec 25, 2020 12:20
--- NOTE | 2020-12-25 12:21 | PDOC4 ---
Procedure Note: ICD 10 Code: ICD 10 Code: In 54 0.17 M 51.36 M 96.1 Procedure Note: Patient was consented for lumbar epidural steroid injection. Risks were discussed including but not limited to: Bleeding, infection, possibility of epidural hematoma and subsequent neurological compromise, dural puncture, headaches, spinal cord and/or nerve damage, side effects of steroid medication, and poor results regarding pain control. Patient understands and wished to proceed. Procedure is lumbar epidural steroid injection under local anesthetic using sterile prep and drape at the L5-S1 level using C-arm fluoroscopic guidance in both AP and lateral views medications injected is 120 mg Depo-Medrol +10mL preservative-free normal saline and 2 mL contrast- condition at discharge is stable patient tolerated procedure well had no complications. KASEY MORGAN MD Dec 25, 2020 12:21
== END | disposition home or self-care (01) ==
LOC: PNCL 11:02
PROVIDERS: ATTEND Anesthesiology
DX: M51.36 Other intervertebral disc degeneration, lumbar region (principal); M96.1 Postlaminectomy syndrome, not elsewhere classified; M54.16 Radiculopathy, lumbar region; E11.9 Type 2 diabetes mellitus without complications; I10 Essential (primary) hypertension; J44.9 Chronic obstructive pulmonary disease, unspecified; Z79.899 Other long term (current) drug therapy; Z79.84 Long term (current) use of oral hypoglycemic drugs; Z87.891 Personal history of nicotine dependence; Z90.49 Acquired absence of other specified parts of digestive tract; Z90.710 Acquired absence of both cervix and uterus; Z87.39 Personal history of other diseases of the musculoskeletal system and connective tissue
CPT/HCPCS: 62323; J1030; J1040; Q9965

== ENCOUNTER → 2021-01-28 | Outpatient (CLI) | payer BC, MEDICARE ==
[~2021-01-28] MED LIST changes: -methylPREDNISolone ACETATE 40 MG/ML VIAL. ONE
--- NOTE | 2021-01-28 12:06 | PDOC4 ---
Procedure Note: ICD 10 Code: ICD 10 Code: M54.16 M51.36 M 96.1 Procedure Note: Patient was consented for lumbar epidural steroid injection with fluoroscopic guidance. Risks were discussed including but not limited to: Bleeding, infection, possibility of epidural hematoma and subsequent neurological compromise, dural puncture, headaches, spinal cord and/or nerve damage, side effects of steroid medication, and poor results regarding pain control. Patient understands and wished to proceed. Procedure is lumbar epidural steroid injection under local anesthetic using ster ile prep and drape at the L5-S1 level using C-arm fluoroscopic guidance in both AP and lateral views medications injected is 120 mg Depo-Medrol +10mL preservative-free normal saline and 2 mL contrast- condition at discharge is stable patient tolerated procedure well had no complications. KASEY MORGAN MD Jan 28, 2021 12:06
--- NOTE | 2021-01-28 12:06 | PDOC ---
Progress Note - Pain Clinic Date of Service: DOS: DATE: 01/28/21 TIME: 12:02 Diagnosis: Dx: Lumbar radiculopathy with lumbar degenerative disease and lumbar postlaminectomy syndrome History or Present Illness: HPI: 70-year-old female returns for follow-up last seen December 25, 2020. Patient reports about 90% better after the injection for the first several weeks over the past week it is becoming much more noticeable however in the low back and now a new finding of pain in the left lower extremity which additionally was only on the right side patient reports in the left lower extremity radicular fashion posterior gluteus posterior thigh posterior calf into the ankle with some numbness and tingling as well patient scribes as cramping burning aching sharp tight generally not awaken her from sleep at night she was doing much better initially with walking standing changing positions doing household work try with greater ease and comfort but has begun to awaken her from sleep about once a night over the past week or so. Patient reports no new motor or sensory deficits no bowel or bladder incontinence. Physical Exam: VS: Blood pressure is 130/72 pulse 105 respirations 18 temperature 90.7 degrees weight is 244 pounds PE: PHYSICAL EXAMINATION: GENERAL: The patient is awake, alert, oriented, appropriate, very pleasant in demeanor. HEENT: Shows normocephalic, atraumatic. Extraocular movements are intact and symmetrical. Oral cavity: Mucous membranes moist and pink. NECK: Shows anterior throat supple without palpable lymphadenopathy noted. Swallow reflex symmetrical. CHEST: Shows normal on inspection. Breath sounds are clear bilaterally. HEART: Shows S1, S2 clear. No murmurs auscultated. ABDOMEN: Soft, nontender, nondistended. No palpable organomegaly is noted. No rebound or guarding demonstrated. BACK: Shows spine grossly in the midline. Normal-appearing cervical lordotic curvature. There is slightly increased thoracic kyphosis, some minor flattening of the lumbar lordotic curvature. Lumbar paraspinous muscles show symmetrical on inspection, on palpation shows some moderate tenderness diffusely throughout the upper, middle and lower distribution of the paraspinous muscles, but without specific trigger points, without radiation of pain. The patient has good rotational motion of the lumbar spine, both laterally as well as extension and flexion without significant difficulty. EXTREMITIES: Lower extremities show deep tendon reflexes 1 in the patellar and tendo calcaneus tendons. Motor exam is 5 on a scale of 5 with right dorsiflexion, extension, quadriceps and hamstring flexion and 5/5 on the left. Peripheral pulses are 1+ posterior tibial. No peripheral edema is noted bilaterally. Lower extremities are warm and dry to touch, equal in color and appearance. SKIN: Shows warm and dry, good turgor. No edema. No sores, rashes or bruising throughout. Procedure: Procedure: Options were discussed with the patient. Patient chart was reviewed as her current medication regimen updated current review of systems updated today as well. We will proceed with lumbar epidural steroid injection today with fluoroscopic guidance. Risks were discussed including but not limited to: Bleeding, infection, possibility of epidural hematoma and subsequent neurological compromise, dural puncture, headaches, spinal cord and/or nerve damage, side effects of steroid medication, and poor results regarding pain control. Patient understands and wished to proceed. Patient will return to the clinic in approximately 4 weeks for follow-up, was counseled as to return appointment activity level and side effects to be aware of. Medication Injected: Med Injected: Procedure is lumbar epidural steroid injection under local anesthetic using sterile prep and drape at the L5-S1 level using C-arm fluoroscopic guidance in both AP and lateral views medications injected is 120 mg Depo-Medrol +10mL preservative-free normal saline and 2 mL contrast- condition at discharge is stable patient tolerated procedure well had no complications. Condition at Discharge: Condition at Discharge: Condition at discharge is stable, patient tolerated the procedure well and had no complications. KASEY MORGAN MD Jan 28, 2021 12:06
== END | disposition home or self-care (01) ==
LOC: PNCL 11:32
PROVIDERS: ATTEND Anesthesiology
DX: M51.16 Intervertebral disc disorders with radiculopathy, lumbar region (principal); M96.1 Postlaminectomy syndrome, not elsewhere classified; Z79.899 Other long term (current) drug therapy; Z98.890 Other specified postprocedural states
CPT/HCPCS: 62323; J1040; Q9965

== ENCOUNTER → 2021-03-01 | Outpatient (CLI) | payer BC, MEDICARE ==
--- NOTE | 2021-03-01 12:12 | PDOC ---
Progress Note - Pain Clinic Date of Service: DOS: DATE: 03/01/21 TIME: 12:07 Diagnosis: Dx: Lumbar radiculopathy with lumbar degenerative disease lumbar postlaminectomy syndrome History or Present Illness: HPI: 70-year-old female returns for follow-up status post lumbar epidural steroid injection most recently January 28, 2021 patient reports did very well about 65% improvement overall in the low back left lower extremity pain still with pain in that same distribution but getting worse and some pain on the right side now as well patient reports this is new is to come up over the past week or so she feels he may be overcompensating with her right leg because her left leg has been more painful but is still not back to baseline. Patient ports the first 2 and half weeks ago is doing significantly better now is about 65% overall improvement. Patient rates her pain as 8 on scale 10 is worse over the past week 6 on average 6 at its least and is a 6 today. Patient is aching and tight radiating can be severe and is today on and off in intensity worse with walking standing changing positions or sitting or laying down generally does not awaken her from sleep at night but over the last week or so it has about every once in the evening may be 5 to 7 hours at the most. Patient reports initially to do much better distance walking doing household activities travel with greater ease and comfort babysitting her grandchildren which she enjoys is been able to do this more comfortably. Patient reports no bowel or bladder incontinence. Physical Exam: VS: Blood pressure is 131 pulse 105 respirations 16 temperature 98.1 F weight is 243 pounds PE: PHYSICAL EXAMINATION: GENERAL: The patient is awake, alert, oriented, appropriate, very pleasant in demeanor HEENT: Shows normocephalic, atraumatic. Extraocular movements are intact and symmetrical. NECK: Shows anterior throat supple without palpable lymphadenopathy noted. Swallow reflex symmetrical. CHEST: Shows normal on inspection. Breath sounds are clear bilaterally, distant no rales or rhonchi. HEART: Shows S1, S2 clear. No murmurs auscultated. ABDOMEN: Soft, nontender, nondistended, obese. No palpable organomegaly is noted. BACK: Shows spine grossly in the midline. Normal-appearing cervical lordotic curvature. There is increased thoracic kyphosis, some flattening of the lumbar lordotic curvature, with well-healed midline surgical scar. Lumbar paraspinous muscles show symmetrical on inspection, on palpation shows some moderate tenderness diffusely throughout the upper, middle and lower distribution of the paraspinous muscles, but without specific trigger points, without radiation of pain. The patient has good rotational motion of the lumbar spine, both laterally as well as extension and flexion without significant difficulty. No tenderness over the spinous processes, sacrum or sacroiliac regions. EXTREMITIES: Lower extremities show deep tendon reflexes 1+ in the patellar and tendo calcaneus tendons. Motor exam is 5 on a scale of 5 with right dorsiflexion, extension, quadriceps and hamstring flexion and 5/5 on the left. Peripheral pulses are 1+ posterior tibial. No peripheral edema is noted bilaterally. Lower extremities are warm and dry to touch, equal in color and appearance. SKIN: Shows warm and dry, good turgor. No edema. No sores, rashes or bruising throughout. Procedure: Procedure: Options discussed with patient. Patient chart reviews her current medication regimen updated current review of systems updated today as well. We will proceed with a lumbar epidural steroid injection today with fluoroscopic guidance. Risks were discussed including but not limited to: Bleeding, infection, possibility of epidural hematoma and subsequent neurological c ompromise, dural puncture, headaches, spinal cord and/or nerve damage, side effects of steroid medication, and poor results regarding pain control. Patient understands and wished to proceed. Patient return to the clinic in approximate 2 weeks for follow-up, was counseled as return appointment, activity level, and side effects to be aware of. Medication Injected: Med Injected: Procedure is lumbar epidural steroid injection under local anesthetic using sterile prep and drape at the L5-S1 level using C-arm fluoroscopic guidance in both AP and lateral views medications injected is 120 mg Depo-Medrol +10mL preservative-free normal saline and 2 mL contrast- condition at discharge is stable patient tolerated procedure well had no complications. Condition at Discharge: Condition at Discharge: Condition at discharge is stable, patient tolerated the procedure well and had no complications. KASEY MORGAN MD Mar 01, 2021 12:12
--- NOTE | 2021-03-01 12:12 | PDOC4 ---
Procedure Note: ICD 10 Code: ICD 10 Code: M54.17 M51.87 M 96.1 Procedure Note: Patient was consented for lumbar epidural steroid traction with fluoroscopic guidance. Risks were discussed including but not limited to: Bleeding, infection, possibility of epidural hematoma and subsequent neurological compromise, dural puncture, headaches, spinal cord and/or nerve damage, side effects of steroid medication, and poor results regarding pain control. Patient understands and wished to proceed. Procedure is lumbar epidural steroid injection under local anesthetic using sterile prep and drape at the L5-S1 level using C-arm fluoroscopic guidance in both AP and lateral views medications injected is 120 mg Depo-Medrol +10mL preservative-free normal saline and 2 mL contrast- condition at discharge is stable patient tolerated procedure well had no complications. KASEY MORGAN MD Mar 01, 2021 12:12
== END | disposition home or self-care (01) ==
LOC: PNCL 11:38
PROVIDERS: ATTEND Anesthesiology
DX: M51.16 Intervertebral disc disorders with radiculopathy, lumbar region (principal); M96.1 Postlaminectomy syndrome, not elsewhere classified; Z79.84 Long term (current) use of oral hypoglycemic drugs; Z79.899 Other long term (current) drug therapy
CPT/HCPCS: 62323; J1040; Q9965

== ENCOUNTER 2021-05-28 15:13 | Inpatient (IN) | payer MEDICARE, BC ==
[~2021-05-28] VITALS: Ht 165.1 cm; Wt 112.8 kg
[~2021-05-28 15:13] MED LIST changes: -IOHEXOL 180 MG/ML 10 ML VIAL. ONE; -methylPREDNISolone ACETATE 80 MG/ML VIAL. ONE
[2021-05-28] MEDS ORDERED: DEXAMETHASONE SOD PHOS 20 MG/5 ML VIAL. IV ONE (15:30)
--- NOTE | 2021-05-28 15:34 | PHYS DOC ---
Past Medical History Past Medical History: Arthritis, COPD, Hypertension General Adult HPI: HPI: Patient is a 70-year-old female that was presents today with [facility] with increased shortness of air and cough. Patient states over the last 5 days she has had cough and increasing short of air, she states she has emphysema and assumed this was related to that. Patient states she is also been febrile over the last 24 to 48 hours, she called 911 because she not could not catch her breath. Patient denies chest pain. Patient does state that she has had 2 Covid vaccines she thinks it was Pfizer she has not had her booster. Review of Systems: Review of Systems: Constitutional: fever or chills. [] Eyes: Denies change in visual acuity. [] HENT: Denies nasal congestion or sore throat. [] Respiratory: cough or shortness of breath. [] Cardiovascular: Denies chest pain or edema. [] GI: Denies abdominal pain, nausea, vomiting, bloody stools or diarrhea. [] : Denies dysuria. [] Musculoskeletal: Denies back pain or joint pain. [] Integument: Denies rash. [] Neurologic: Denies headache, focal weakness or sensory changes. [] Endocrine: Denies polyuria or polydipsia. [] Lymphatic: Denies swollen glands. [] Psychiatric: Denies depression or anxiety. [] Heart Score: C/O Chest Pain: N/A Risk Factors: Risk Factors: DM, Current or recent (<one month) smoker, HTN, HLP, family history of CAD, obesity. Risk Scores: Score 0 - 3: 2.5% MACE over next 6 weeks - Discharge Home Score 4 - 6: 20.3% MACE over next 6 weeks - Admit for Clinical Observation Score 7 - 10: 72.7% MACE over next 6 weeks - Early Invasive Strategies Current Medications: Amlodipine Losartan Pravastatin Metformin Allergies: Allergies: Allergies Coded Allergies Type Severity Reaction Last Updated Verified No Known Drug Allergies 09/09/17 No Physical Exam: PE: Constitutional: Well developed, well nourished, moderate distress, non-toxic appearance. [] HENT: Normocephalic, atraumatic, bilateral external ears normal, oropharynx moist, no oral exudates, nasal congestion noted. [] Eyes: PERRLA, EOMI, conjunctiva normal, no discharge. [] Neck: Normal range of motion, no tenderness, supple, no stridor. [] Cardiovascular:Heart rate regular rhythm, no murmur [] Lungs & Thorax: Bilateral breath sounds wheezes and rhonci through out, cough present. Abdomen: Bowel sounds normal, soft, no tenderness, no masses, no pulsatile masses. [] Skin: Warm, dry, no erythema, no rash. [] Back: No tenderness, no CVA tenderness. [] Extremities: No tenderness, no cyanosis, no clubbing, ROM intact, no edema. [] Neurologic: Alert and oriented X 3, normal motor function, normal sensory function, no focal deficits noted. [] Psychologic: Affect normal, judgement normal, mood normal. [] Current Patient Data: Labs: Laboratory Tests Test 05/28/21 15:55 05/28/21 16:55 Influenza Type A Antigen Negative Influenza Type B Antigen Negative SARS-CoV-2 Antigen (Rapid) Negative White Blood Count 12.1 x10^3/uL Red Blood Count 4.25 x10^6/uL Hemoglobin 10.8 g/dL Hematocrit 34.2 % Mean Corpuscular Volume 81 fL Mean Corpuscular Hemoglobin 26 pg Mean Corpuscular Hemoglobin Concent 32 g/dL Red Cell Distribution Width 16.5 % Platelet Count 261 x10^3/uL Neutrophils (%) (Auto) 74 % Lymphocytes (%) (Auto) 12 % Monocytes (%) (Auto) 13 % Eosinophils (%) (Auto) 0 % Basophils (%) (Auto) 1 % Neutrophils # (Auto) 9.0 x10^3/uL Lymphocytes # (Auto) 1.5 x10^3/uL Monocytes # (Auto) 1.6 x10^3/uL Eosinophils # (Auto) 0.0 x10^3/uL Basophils # (Auto) 0.1 x10^3/uL Sodium Level 140 mmol/L Potassium Level 4.0 mmol/L Chloride Level 101 mmol/L Carbon Dioxide Level 23 mmol/L Anion Gap 16 Blood Urea Nitrogen 20 mg/dL Creatinine 1.2 mg/dL Estimated GFR (Cockcroft-Gault) 44.3 BUN/Creatinine Ratio 17 Glucose Level 113 mg/dL Lactic Acid Level 1.5 mmol/L Calcium Level 8.2 mg/dL Total Bilirubin 0.3 mg/dL Aspartate Amino Transf (AST/SGOT) 18 U/L Alanine Aminotransferase (ALT/SGPT) 16 U/L Alkaline Phosphatase 65 U/L Troponin I High Sensitivity 10 ng/L Total Protein 7.9 g/dL Albumin 3.0 g/dL Albumin/Globulin Ratio 0.6 Current Medications Medications (Trade) Dose Ordered Sig/Eri Route PRN Reason Start Time Stop Time Status Last Admin Dose Admin Dexamethasone Sodium Phosphate (Decadron) 10 mg 1X ONCE IV 05/28/21 15:30 05/28/21 15:31 DC 05/28/21 16:18 Albuterol/ Ipratropium (Duoneb) 3 ml 1X ONCE NEB 05/28/21 15:45 05/28/21 15:46 DC 05/28/21 15:48 Vital Signs: Vital Signs Date Time Temp Pulse Resp B/P (MAP) Pulse Ox O2 Delivery O2 Flow Rate FiO2 05/28/21 19:57 86 18 106/60 (75) 95 Nasal Cannula 2.0 05/28/21 18:29 93 18 138/60 (86) 96 Nasal Cannula 2.0 05/28/21 18:28 18 96 Nasal Cannula 2.0 05/28/21 16:50 109 25 95 Nasal Cannula 2.0 05/28/21 16:02 100.7 114 31 116/63 (80) 92 Room Air 100.7 05/28/21 15:50 92 Room Air Vital Signs Date Time Temp Pulse Resp B/P (MAP) Pulse Ox O2 Delivery O2 Flow Rate FiO2 05/28/21 16:50 109 25 95 Nasal Cannula 2.0 05/28/21 16:02 100.7 114 31 116/63 (80) 92 Room Air 100.7 05/28/21 15:50 92 Room Air EKG: EKG: EKG done at [address] Purvis 1558 no STEMI. Rate of 115 bpm sinus tachycardia UT interval 114 ms with a QT interval of 417 ms. [] Radiology/Procedures: Radiology/Procedures: REASON: cough and SOA PROCEDURE: CHEST AP ONLY EXAM: Chest, single view. HISTORY: Cough. Shortness of air. COMPARISON: None. FINDINGS: A frontal view of the chest is obtained. There is suspected bilateral lower lobe atelectasis or chronic interstitial change. There is no consolidation, pleural effusion or pneumothorax. The heart is normal in size for portable technique. IMPRESSION: No acute pulmonary finding. Electronically signed by: Haven Lombardo MD (05/28/2021 3:42 PM) [id number] [] Course & Med Decision Making: Course & Med Decision Making Pertinent Labs and Imaging studies reviewed. (See chart for details) 532 reassessment of patient says her breathing is better but patient is now complaining of left back pain, she states she has had this pain for over the last 4 days but does have a history of epidural steroid injections in the past. Currently oxygen saturations are 98% on room air, HR continues to be 100's Will call Dr. Chapa about admitting this patient. [address] Kaur about admission he is requesting a D-dimer be ordered, he also will admit patient to telemetry consult Dr. Hall will resume her home meds and Solu-Medrol 125. Dragon Disclaimer: Dragon Disclaimer: This electronic medical record was generated, in whole or in part, using a voice recognition dictation system. Departure Departure Impression: Primary Impression: COPD exacerbation Additional Impression: Back pain Qualified Codes: M54.9 - Dorsalgia, unspecified; G89.29 - Other chronic pain Disposition: 09 ADMITTED INPATIENT Admitting Physician: Ariel Chapa Condition: STABLE Referrals: ARIEL CHAPA MD (PCP) LAVERNE DANIELS APRN May 28, 2021 15:34
[2021-05-28] MEDS ORDERED: IPRATRPIUM/ALBUTEROL 0.5/2.5MG 3 ML NEBU. NEB ONE (15:45)
--- NOTE | 2021-05-28 15:45 | RAD ---
EXAM: Chest, single view. HISTORY: Cough. Shortness of air. COMPARISON: None. FINDINGS: A frontal view of the chest is obtained. There is suspected bilateral lower lobe atelectasi s or chronic interstitial change. There is no consolidation, pleural effusion or pneumothorax. The he art is normal in size for portable technique. IMPRESSION: No acute pulmonary finding. Electronically signed by: Haven Lombardo MD (05/28/2021 3:42 PM) [email or web address]
[2021-05-28 16:37] LABS: INFLUENZA A PATIENT NEGATIVE (NEGATIVE); INFLUENZA B PATIENT NEGATIVE (NEGATIVE)
[2021-05-28 17:03] LABS: BASO # 0.1 x10^3/uL (0.0-0.2); BASO % 1 % (0-3); EOS % 0 % (0-3); HEMATOCRIT 34.2 % (36.0-47.0); HEMOGLOBIN 10.8 g/dL (12.0-15.5); LYMPH # 1.5 x10^3/uL (1.0-4.8); LYMPH % 12 % (24-48); MEAN CORPUSCULAR HEMOGLOBIN 26 pg (25-35); MEAN CORPUSCULAR HGB CONC 32 g/dL (31-37); MEAN CORPUSCULAR VOLUME 81 fL (79-100); MONO # 1.6 x10^3/uL (0.0-1.1); MONO % 13 % (0-9); NEUT % 74 % (31-73); PLATELET COUNT 261 x10^3/uL (140-400); RED BLOOD COUNT 4.25 x10^6/uL (3.50-5.40); RED CELL DISTRIBUTION WIDTH 16.5 % (11.5-14.5); WHITE BLOOD COUNT 12.1 x10^3/uL (4.0-11.0)
--- NOTE | 2021-05-28 17:27 | EKG ---
[facility] [address] [place] [address] Test Date: 2021-05-28 Test Time: 15:47:18 Pat Name: KEANU MONTES Department: Room: Gender: F Box Cutter: : 1950 Requested By: LAVERNE DANIELS Order Number: [id number] Reading MD: Adiel Benitez Measurements Intervals Angelica Rate: 115 P: 3 WA: 114 QRS: -5 QRSD: 72 T: 43 QT: 300 QTc: 417 Interpretive Statements SINUS TACHYCARDIA LEFTWARD AXIS Electronically Signed On 05-29-2021 7:56:13 TANK CREWMEMBER by Adiel Benitez
[2021-05-28 17:28] LABS: CALCIUM 8.2 mg/dL (8.5-10.1); CREATININE 1.2 mg/dL (0.6-1.0); GFR 44.3
[2021-05-28 17:32] LABS: ALBUMIN/GLOBULIN RATIO 0.6 (1.0-1.7); TOTAL BILIRUBIN 0.3 mg/dL (0.2-1.0); TOTAL PROTEIN 7.9 g/dL (6.4-8.2)
[2021-05-28] MEDS ORDERED: fentaNYL PF VIAL 100 MCG/2 ML VIAL IVP ONE (18:15)
[2021-05-28] MEDS ORDERED: MORPHINE SULFATE 2 MG/ML INJ. IVP PRN (18:45)
[2021-05-28] MEDS ORDERED: ALBUTEROL SULFATE 2.5 MG/3 ML NEBU. NEB PRN (18:45)
[2021-05-28] MEDS ORDERED: cefTRIAXone IV Push 1 GM VIAL. IVP ONE (19:00)
[2021-05-28] MEDS: LOSARTAN POTASSIUM 50 MG TABLET. PO SCH (19:00)
[2021-05-28 22:45] VITALS: BP 124/58
[2021-05-29] VITALS (7 sets, daily range): BP systolic 100–142; BP diastolic 57–77
[2021-05-29] MEDS ORDERED: LOSA50TA15 PO (01:53)
[2021-05-29] MEDS ORDERED: METF500T16 PO (01:53)
--- NOTE | 2021-05-29 08:07 | PDOC ---
PULMONARY PROGRESS NOTES DATE: 05/29/21 TIME: 08:07 Vitals Vital Signs Date Time Temp Pulse Resp B/P (MAP) Pulse Ox O2 Delivery O2 Flow Rate FiO2 05/29/21 03:07 98.3 83 20 117/63 (81) 94 Nasal Cannula 98.3 05/28/21 22:00 2.0 Labs Laboratory Tests Test 05/28/21 15:55 05/28/21 16:55 Influenza Type A Antigen Negative (NEGATIVE) Influenza Type B Antigen Negative (NEGATIVE) SARS-CoV-2 Antigen (Rapid) Negative (NEGATIVE) White Blood Count 12.1 x10^3/uL (4.0-11.0) Red Blood Count 4.25 x10^6/uL (3.50-5.40) Hemoglobin 10.8 g/dL (12.0-15.5) Hematocrit 34.2 % (36.0-47.0) Mean Corpuscular Volume 81 fL (79-100) Mean Corpuscular Hemoglobin 26 pg (25-35) Mean Corpuscular Hemoglobin Concent 32 g/dL (31-37) Red Cell Distribution Width 16.5 % (11.5-14.5) Platelet Count 261 x10^3/uL (140-400) Neutrophils (%) (Auto) 74 % (31-73) Lymphocytes (%) (Auto) 12 % (24-48) Monocytes (%) (Auto) 13 % (0-9) Eosinophils (%) (Auto) 0 % (0-3) Basophils (%) (Auto) 1 % (0-3) Neutrophils # (Auto) 9.0 x10^3/uL (1.8-7.7) Lymphocytes # (Auto) 1.5 x10^3/uL (1.0-4.8) Monocytes # (Auto) 1.6 x10^3/uL (0.0-1.1) Eosinophils # (Auto) 0.0 x10^3/uL (0.0-0.7) Basophils # (Auto) 0.1 x10^3/uL (0.0-0.2) D-Dimer (Sammie) 1.61 ug/mlFEU (0.00-0.50) Sodium Level 140 mmol/L (136-145) Potassium Level 4.0 mmol/L (3.5-5.1) Chloride Level 101 mmol/L (98-107) Carbon Dioxide Level 23 mmol/L (21-32) Anion Gap 16 (6-14) Blood Urea Nitrogen 20 mg/dL (7-20) Creatinine 1.2 mg/dL (0.6-1.0) Estimated GFR (Cockcroft-Gault) 44.3 BUN/Creatinine Ratio 17 (6-20) Glucose Level 113 mg/dL (70-99) Lactic Acid Level 1.5 mmol/L (0.4-2.0) Calcium Level 8.2 mg/dL (8.5-10.1) Total Bilirubin 0.3 mg/dL (0.2-1.0) Aspartate Amino Transf (AST/SGOT) 18 U/L (15-37) Alanine Aminotransferase (ALT/SGPT) 16 U/L (14-59) Alkaline Phosphatase 65 U/L (46-116) Troponin I High Sensitivity 10 ng/L (4-50) Total Protein 7.9 g/dL (6.4-8.2) Albumin 3.0 g/dL (3.4-5.0) Albumin/Globulin Ratio 0.6 (1.0-1.7) Laboratory Tests Test 05/28/21 15:55 05/28/21 16:55 Influenza Type A Antigen Negative (NEGATIVE) Influenza Type B Antigen Negative (NEGATIVE) SARS-CoV-2 Antigen (Rapid) Negative (NEGATIVE) White Blood Count 12.1 x10^3/uL (4.0-11.0) Red Blood Count 4.25 x10^6/uL (3.50-5.40) Hemoglobin 10.8 g/dL (12.0-15.5) Hematocrit 34.2 % (36.0-47.0) Mean Corpuscular Volume 81 fL (79-100) Mean Corpuscular Hemoglobin 26 pg (25-35) Mean Corpuscular Hemoglobin Concent 32 g/dL (31-37) Red Cell Distribution Width 16.5 % (11.5-14.5) Platelet Count 261 x10^3/uL (140-400) Neutrophils (%) (Auto) 74 % (31-73) Lymphocytes (%) (Auto) 12 % (24-48) Monocytes (%) (Auto) 13 % (0-9) Eosinophils (%) (Auto) 0 % (0-3) Basophils (%) (Auto) 1 % (0-3) Neutrophils # (Auto) 9.0 x10^3/uL (1.8-7.7) Lymphocytes # (Auto) 1.5 x10^3/uL (1.0-4.8) Monocytes # (Auto) 1.6 x10^3/uL (0.0-1.1) Eosinophils # (Auto) 0.0 x10^3/uL (0.0-0.7) Basophils # (Auto) 0.1 x10^3/uL (0.0-0.2) D-Dimer (Sammie) 1.61 ug/mlFEU (0.00-0.50) Sodium Level 140 mmol/L (136-145) Potassium Level 4.0 mmol/L (3.5-5.1) Chloride Level 101 mmol/L (98-107) Carbon Dioxide Level 23 mmol/L (21-32) Anion Gap 16 (6-14) Blood Urea Nitrogen 20 mg/dL (7-20) Creatinine 1.2 mg/dL (0.6-1.0) Estimated GFR (Cockcroft-Gault) 44.3 BUN/Creatinine Ratio 17 (6-20) Glucose Level 113 mg/dL (70-99) Lactic Acid Level 1.5 mmol/L (0.4-2.0) Calcium Level 8.2 mg/dL (8.5-10.1) Total Bilirubin 0.3 mg/dL (0.2-1.0) Aspartate Amino Transf (AST/SGOT) 18 U/L (15-37) Alanine Aminotransferase (ALT/SGPT) 16 U/L (14-59) Alkaline Phosphatase 65 U/L (46-116) Troponin I High Sensitivity 10 ng/L (4-50) Total Protein 7.9 g/dL (6.4-8.2) Albumin 3.0 g/dL (3.4-5.0) Albumin/Globulin Ratio 0.6 (1.0-1.7) Medications Active Scripts Medications Dose Route/Sig Max Daily Dose Days Date Category Metformin Hcl 500 Mg Tablet 500 Mg PO BID 05/29/21 Reported Losartan Potassium 50 Mg Tablet 50 Mg PO DAILY 05/29/21 Reported Tylenol (Acetaminophen) 325 Mg Tablet 1 Tab PO PRN Q4HRS 07/12/19 Reported Metformin Hcl 1,000 Mg Tablet 1,000 Mg PO DAILYWBKFT 07/12/19 Reported Proair Hfa Inhaler (Albuterol Sulfate) 8.5 Gm Hfa.aer.ad 2 Puff IH PRN Q4-6HRS PRN 21 07/12/19 Reported Pravastatin Sodium 10 Mg Tablet 40 Mg PO DAILY 09/09/17 Reported Losartan Potassium (Losartan Potassium) 25 Mg Tablet 25 Mg PO DAILY 09/09/17 Reported Amlodipine Besylate 5 Mg Tablet 5 Mg PO DAILY 09/09/17 Reported Impression . Consult dictated Continue empiric antibiotics Acute exacerbation of COPD Fever suspect viral CLIFFORD MELO MD May 29, 2021 08:07
[2021-05-29] MEDS ORDERED: methylPREDNISolone SOD SUCC PF 125 MG/2 ML VIAL. IV SCH (09:00)
[2021-05-29] MEDS: metFORMIN 500 MG TABLET PO SCH ×2 (09:12→16:41)
[2021-05-29] MEDS: LOSARTAN POTASSIUM 50 MG TABLET. PO SCH (09:13)
--- NOTE | 2021-05-29 13:10 | NUR ---
SW following. Discussed with RN, pt from home with , 2L (does not use oxygen at home), regular diet. Flu and Rapid COVID-19 negative - awaiting PCR covid. Pulmonology following. RN advised no SW needs at this time. SW will continue to follow.
[2021-05-29] MEDS ORDERED: ACETAMINOPHEN 325 MG TABLET. PO PRN (13:45)
[2021-05-29] MEDS ORDERED: CYCLOBENZAPRINE 10 MG TABLET. PO PRN (13:45)
--- NOTE | 2021-05-29 13:50 | PDOC ---
Provider Note Date of Service: DATE: 05/29/21 TIME: 13:49 Provider Note history and physical dictated # [id number] Justifications for Admission Other Justification SID HUNG MD May 29, 2021 13:50
--- NOTE | 2021-05-29 15:02 | RAD ---
EXAM: Lumbar spine, 2 views. HISTORY: Pain. COMPARISON: 06/27/2019. FINDINGS: 2 views of the lumbar spine are obtained. There are 6 nonrib-bearing lumbar segments or the re are hypoplastic T12 ribs. For the purposes of this dictation, the last segment is considered L5. B ased on the stomach system, there is approximately 9 mm grade 1 anterolisthesis of L5 on S1. There ar e is multilevel endplate remodeling. There is facet arthropathy predominantly the lower lumbar levels . There are multiple endplate Schmorl's nodes. There is a mild infrarenal abdominal aortic aneurysm a neurysm. There is minimal levocurvature at the lower lumbar levels. IMPRESSION: 1. Multilevel degenerative change, primarily at the lower lumbar levels. 2. Grade 1 anterolisthesis of L5 on S1. 3. Mild aortic aneurysm, not formally assessed on this exam. Electronically signed by: Haven Lombardo MD (05/29/2021 2:59 PM) [id number]
[2021-05-29] MEDS: ENOXAPARIN 40 MG/0.4 ML SYRINGE. SQ SCH ×2 (15:06→21:24)
[2021-05-29] MEDS: IPRATRPIUM/ALBUTEROL 0.5/2.5MG 3 ML NEBU. NEB SCH ×2 (15:11→19:31)
--- NOTE | 2021-05-29 15:42 | HP ---
DATE OF SERVICE: 05/29/2021 ADMIT DATE: 05/28/2021 LOCATION: She is in room 534. HISTORY OF PRESENT ILLNESS: The patient is a 70-year-old white female with a history of diabetes mellitus type 2, hypertension, hyperlipidemia, obstructive sleep apnea, treated with CPAP, who has chronic obstructive pulmonary disease and morbid obesity, noted a 5-day history of shortness of breath and also low back pain in the left lumbar muscles. The patient also had a cough productive of clear yellow sputum and she sought help at the [facility] Emergency Room via paramedics as she could not catch her breath and she was short of breath. She did 2 COVID-19 vaccinations. In the emergency room, rapid COVID-19 test was negative. She thought to have a chronic obstructive pulmonary disease exacerbation. Chest x-ray showed no acute abnormality. She was given 10 mg of dexamethasone, IV Rocephin in the emergency room. Then, she was started on Solu-Medrol 125 mg IV daily. She was subsequently admitted to the hospital for further evaluation and treatment. She denies any fall or trauma regarding her back, back hurts when she moved around and had difficulty getting out of bed because of the back pain also, but she was also short of breath. ALLERGIES AND INTOLERANCES: None. MEDICATIONS: Prior to admission include: Albuterol inhaler 2 puffs every 4 hours p.r.n., amlodipine 5 mg every day, Anoro Ellipta 62.5 mcg-25 mcg 1 puff every day, aspirin 81 mg every day, losartan 50 mg every day, metformin 500 mg b.i.d., pravastatin 40 mg every day. PAST MEDICAL HISTORY: Significant for hypertension, hyperlipidemia, diabetes mellitus type 2, lumbar surgery in 2012, abdominal surgery as a baby. Cholecystectomy, total abdominal hysterectomy, bilateral salpingo-oophorectomy, tonsillectomy, obstructive sleep apnea. Morbid obesity. Also, has chronic obstructive pulmonary disease. SOCIAL HISTORY: She does not drink alcohol. She quit smoking many years ago. She is . FAMILY HISTORY: Noncontributory. REVIEW OF SYSTEMS: CONSTITUTIONAL: Denies any fever, chills or sweats. CARDIOVASCULAR: No chest pain. PULMONARY: She had cough and shortness of breath. GASTROINTESTINAL: No diarrhea. ENDOCRINE: She has diabetes mellitus. SKIN: No rashes. MUSCULOSKELETAL: She has muscle pain in the left lumbar area. Rest of systems reviewed and are negative except as stated in history of present illness. PHYSICAL EXAMINATION: VITAL SIGNS: Temperature 97.6 degrees, apical pulse is regular at 93, respiratory rate is 20, blood pressure 142/61, oxygen saturation 95% on 2 liters per nasal cannula. HEENT: Eyes: Gaze is conjugate. Mouth: Tongue is midline. NECK: There is no cervical lymphadenopathy or thyroid enlargement. CARDIOVASCULAR: Reveals an S1, S2. There is no S3 or murmur. LUNGS: Reveal decreased breath sounds with few scattered rhonchi. ABDOMEN: Obese and soft with no hepatosplenomegaly, masses or tenderness. EXTREMITIES: Lower extremities without edema. Both feet are warm. SKIN: No rashes. NEUROLOGIC: Reveal no facial weakness, got 5/5 bilateral hand ring maker, able to dorsi and plantarflex her feet, bend her knees and raise her legs up in the air. BACK: Shows the point of maximum pain is in the lumbar muscles on the left side. She is able to sit up in the bed. LABORATORY DATA: Review of her laboratory tests; white count 12.1, hemoglobin 10.8, platelet count 261,000. She had 74 polys and 12 lymphocytes. D-dimer is 1.6. Sodium 140, potassium 4.0, chloride 101, total CO2 of 23, BUN 20, creatinine 1.2. Blood sugar was 113. The lactic acid was 1.5. Liver function tests were normal. Albumin 3.0. The influenza A and B and RNA COVID-19 tests were negative. She had a chest x-ray done, which showed no acute abnormality. She had some suspected bilateral lower lobe atelectasis, chronic interstitial change. No pleural effusion or pneumothorax. Heart size is normal. Then, she had an electrocardiogram done, which showed sinus tachycardia, left axis deviation. IMPRESSION: 1. Chronic obstructive pulmonary disease with acute exacerbation. 2. Acute bronchitis. 3. Lumbar strain. 4. Diabetes mellitus type 2. 5. Hypertension. 6. Hyperlipidemia. 7. Obstructive sleep apnea. 8. Morbid obesity. 9. Mild leukocytosis. PLAN: At this time is admitted to the hospital. We will consult Dr. Abarca for pulmonary. We will order an x-ray of her lumbar spine. On muscle relaxant, cyclobenzaprine 5 mg t.i.d. p.r.n. We will also change the Solu-Medrol to 40 mg IV every 12 hours. Continue metformin for diabetes. Order NovoLog insulin sliding scale before meals. Continue her antihypertensive medications and cholesterol medication. Put her on DuoNeb nebulizer treatments q.i.d. She received some physical therapy. We will also continue with the Rocephin and also obtain a sputum culture. We will also put her on some Lovenox for DVT prophylaxis. Thank you very much. FELISA DR: Cecy TID: [id number]
[2021-05-29] MEDS: INSULIN LISPRO 300 UNITS/3 ML VIAL. SQ SCH (16:43)
--- NOTE | 2021-05-29 17:41 | CONS ---
DATE OF CONSULTATION: 05/29/2021 ATTENDING PHYSICIAN: Ariel Chapa MD. REASON FOR CONSULTATION: The patient is seen in pulmonary consultation at the request of Dr. Chapa for abnormal x-ray. HISTORY OF PRESENT ILLNESS: The patient is a 70-year-old that was followed in the office by Dr. Granados for underlying obstructive sleep apnea, COPD with past history of tobacco use, quit 10 years ago. The patient presented with fever, chills, not severely more short of air. She also has some back pain. She had a chest x-ray, which I personally reviewed, revealing some increased interstitial lung markings. There were no acute findings. I was asked to see her in consultation. The patient had serology testing for influenza and SARS-CoV-2 which was negative. Her white count was 12.1. D-dimer was slightly elevated. Electrolytes were noted. PAST MEDICAL HISTORY: Otherwise remarkable for COPD with a previous FEV1 of 2.13 liters at 93% of predicted. She has obstructive sleep apnea, normally wears CPAP at home of 14 cm of water pressure. There is a prior history of hypertension, hyperlipidemia, obesity. PAST SURGICAL HISTORY: Status post cholecystectomy. SOCIAL HISTORY: She quit tobacco at the age of 60. REVIEW OF SYSTEMS: As indicated above, otherwise a 10-point system was reviewed and negative. CURRENT MEDICATIONS: List was reviewed. She is currently receiving ceftriaxone and her home meds. PHYSICAL EXAMINATION: VITAL SIGNS: Stable. O2 saturation greater than 92%. Yesterday, she had a fever of 100.7. HEENT: Eyes: The sclerae were nonicteric. NECK: Jugular venous distention was not elevated. No lymphadenopathy. CHEST: Full expansion. LUNGS: Adequate flow with no wheezes. CARDIOVASCULAR: Regular rate and rhythm with S1, S2, no S3. ABDOMEN: Soft, obese. EXTREMITIES: No clubbing, cyanosis or edema. LABORATORY DATA: Reviewed. White count was slightly elevated as indicated above. Electrolytes were noted. Chest x-ray, no acute findings. IMPRESSION: 1. Fever, suspect viral in nature. 2. Abnormal x-ray revealing some chronic changes. 3. Chronic obstructive pulmonary disease with exacerbation. 4. Morbid obesity. 5. Obstructive sleep apnea. 6. Back pain, suspect musculoskeletal. PLAN: 1. Continue empiric antibiotics. 2. Check urinalysis. 3. Continue nebulized treatments. I do appreciate the privilege in sharing in the patient's care. AMY/EPI DR: Francesca TID: [id number]
[2021-05-29] MEDS: cefTRIAXone IV Push 1 GM VIAL. IVP SCH (19:42)
--- NOTE | 2021-05-30 02:28 | NUR ---
Patient transferred from 4 via wheelchair. Alert and oriented x4. Denies any pain or discomfort at this time. Ambulated from wheelchair to bed with standby assist x1 without difficulty. Patient currently in bed resting quietly with eyes open. No acute distress noted. Call cook is in reach. Will continue to monitor.
[2021-05-30 03:00] VITALS: BP 113/58
[2021-05-30] MEDS: IPRATRPIUM/ALBUTEROL 0.5/2.5MG 3 ML NEBU. NEB SCH ×4 (06:56→18:15)
[2021-05-30 07:00] VITALS: BP 109/68
[2021-05-30 07:15] LABS: BASO % 0 % (0-3); EOS % 0 % (0-3); HEMATOCRIT 30.7 % (36.0-47.0); HEMOGLOBIN 9.6 g/dL (12.0-15.5); LYMPH # 1.2 x10^3/uL (1.0-4.8); LYMPH % 8 % (24-48); MEAN CORPUSCULAR HEMOGLOBIN 26 pg (25-35); MEAN CORPUSCULAR HGB CONC 31 g/dL (31-37); MEAN CORPUSCULAR VOLUME 82 fL (79-100); MONO # 0.8 x10^3/uL (0.0-1.1); MONO % 5 % (0-9); NEUT # 13.4 x10^3/uL (1.8-7.7); NEUT % 87 % (31-73); PLATELET COUNT 320 x10^3/uL (140-400); RED BLOOD COUNT 3.76 x10^6/uL (3.50-5.40); RED CELL DISTRIBUTION WIDTH 16.3 % (11.5-14.5); WHITE BLOOD COUNT 15.5 x10^3/uL (4.0-11.0)
[2021-05-30 07:27] LABS: CALCIUM 8.6 mg/dL (8.5-10.1); GFR 54.7; POTASSIUM 4.9 mmol/L (3.5-5.1)
--- NOTE | 2021-05-30 08:36 | PDOC ---
PULMONARY PROGRESS NOTES DATE: 05/30/21 TIME: 08:36 Vitals Vital Signs Date Time Temp Pulse Resp B/P (MAP) Pulse Ox O2 Delivery O2 Flow Rate FiO2 05/30/21 06:58 96 Nasal Cannula 2.0 05/30/21 03:00 97.8 88 18 113/58 (76) 97.8 Labs Laboratory Tests Test 05/28/21 15:55 05/28/21 16:55 05/29/21 08:34 05/29/21 12:01 Influenza Type A Antigen Negative (NEGATIVE) Influenza Type B Antigen Negative (NEGATIVE) SARS-CoV-2 RNA (ZULEIKA) Negative (Negative) SARS-CoV-2 Antigen (Rapid) Negative (NEGATIVE) White Blood Count 12.1 x10^3/uL (4.0-11.0) Red Blood Count 4.25 x10^6/uL (3.50-5.40) Hemoglobin 10.8 g/dL (12.0-15.5) Hematocrit 34.2 % (36.0-47.0) Mean Corpuscular Volume 81 fL (79-100) Mean Corpuscular Hemoglobin 26 pg (25-35) Mean Corpuscular Hemoglobin Concent 32 g/dL (31-37) Red Cell Distribution Width 16.5 % (11.5-14.5) Platelet Count 261 x10^3/uL (140-400) Neutrophils (%) (Auto) 74 % (31-73) Lymphocytes (%) (Auto) 12 % (24-48) Monocytes (%) (Auto) 13 % (0-9) Eosinophils (%) (Auto) 0 % (0-3) Basophils (%) (Auto) 1 % (0-3) Neutrophils # (Auto) 9.0 x10^3/uL (1.8-7.7) Lymphocytes # (Auto) 1.5 x10^3/uL (1.0-4.8) Monocytes # (Auto) 1.6 x10^3/uL (0.0-1.1) Eosinophils # (Auto) 0.0 x10^3/uL (0.0-0.7) Basophils # (Auto) 0.1 x10^3/uL (0.0-0.2) D-Dimer (Sammie) 1.61 ug/mlFEU (0.00-0.50) Sodium Level 140 mmol/L (136-145) Potassium Level 4.0 mmol/L (3.5-5.1) Chloride Level 101 mmol/L (98-107) Carbon Dioxide Level 23 mmol/L (21-32) Anion Gap 16 (6-14) Blood Urea Nitrogen 20 mg/dL (7-20) Creatinine 1.2 mg/dL (0.6-1.0) Estimated GFR (Cockcroft-Gault) 44.3 BUN/Creatinine Ratio 17 (6-20) Glucose Level 113 mg/dL (70-99) Lactic Acid Level 1.5 mmol/L (0.4-2.0) Calcium Level 8.2 mg/dL (8.5-10.1) Total Bilirubin 0.3 mg/dL (0.2-1.0) Aspartate Amino Transf (AST/SGOT) 18 U/L (15-37) Alanine Aminotransferase (ALT/SGPT) 16 U/L (14-59) Alkaline Phosphatase 65 U/L (46-116) Troponin I High Sensitivity 10 ng/L (4-50) Total Protein 7.9 g/dL (6.4-8.2) Albumin 3.0 g/dL (3.4-5.0) Albumin/Globulin Ratio 0.6 (1.0-1.7) Glucose (Fingerstick) 145 mg/dL (70-99) 201 mg/dL (70-99) Test 05/29/21 16:35 05/29/21 20:46 05/30/21 06:10 05/30/21 08:00 Glucose (Fingerstick) 250 mg/dL (70-99) 234 mg/dL (70-99) 206 mg/dL (70-99) White Blood Count 15.5 x10^3/uL (4.0-11.0) Red Blood Count 3.76 x10^6/uL (3.50-5.40) Hemoglobin 9.6 g/dL (12.0-15.5) Hematocrit 30.7 % (36.0-47.0) Mean Corpuscular Volume 82 fL (79-100) Mean Corpuscular Hemoglobin 26 pg (25-35) Mean Corpuscular Hemoglobin Concent 31 g/dL (31-37) Red Cell Distribution Width 16.3 % (11.5-14.5) Platelet Count 320 x10^3/uL (140-400) Neutrophils (%) (Auto) 87 % (31-73) Lymphocytes (%) (Auto) 8 % (24-48) Monocytes (%) (Auto) 5 % (0-9) Eosinophils (%) (Auto) 0 % (0-3) Basophils (%) (Auto) 0 % (0-3) Neutrophils # (Auto) 13.4 x10^3/uL (1.8-7.7) Lymphocytes # (Auto) 1.2 x10^3/uL (1.0-4.8) Monocytes # (Auto) 0.8 x10^3/uL (0.0-1.1) Eosinophils # (Auto) 0.0 x10^3/uL (0.0-0.7) Basophils # (Auto) 0.0 x10^3/uL (0.0-0.2) Sodium Level 141 mmol/L (136-145) Potassium Level 4.9 mmol/L (3.5-5.1) Chloride Level 104 mmol/L (98-107) Carbon Dioxide Level 24 mmol/L (21-32) Anion Gap 13 (6-14) Blood Urea Nitrogen 35 mg/dL (7-20) Creatinine 1.0 mg/dL (0.6-1.0) Estimated GFR (Cockcroft-Gault) 54.7 Glucose Level 169 mg/dL (70-99) Calcium Level 8.6 mg/dL (8.5-10.1) Laboratory Tests Test 05/29/21 12:01 05/29/21 16:35 05/29/21 20:46 05/30/21 06:10 Glucose (Fingerstick) 201 mg/dL (70-99) 250 mg/dL (70-99) 234 mg/dL (70-99) White Blood Count 15.5 x10^3/uL (4.0-11.0) Red Blood Count 3.76 x10^6/uL (3.50-5.40) Hemoglobin 9.6 g/dL (12.0-15.5) Hematocrit 30.7 % (36.0-47.0) Mean Corpuscular Volume 82 fL (79-100) Mean Corpuscular Hemoglobin 26 pg (25-35) Mean Corpuscular Hemoglobin Concent 31 g/dL (31-37) Red Cell Distribution Width 16.3 % (11.5-14.5) Platelet Count 320 x10^3/uL (140-400) Neutrophils (%) (Auto) 87 % (31-73) Lymphocytes (%) (Auto) 8 % (24-48) Monocytes (%) (Auto) 5 % (0-9) Eosinophils (%) (Auto) 0 % (0-3) Basophils (%) (Auto) 0 % (0-3) Neutrophils # (Auto) 13.4 x10^3/uL (1.8-7.7) Lymphocytes # (Auto) 1.2 x10^3/uL (1.0-4.8) Monocytes # (Auto) 0.8 x10^3/uL (0.0-1.1) Eosinophils # (Auto) 0.0 x10^3/uL (0.0-0.7) Basophils # (Auto) 0.0 x10^3/uL (0.0-0.2) Sodium Level 141 mmol/L (136-145) Potassium Level 4.9 mmol/L (3.5-5.1) Chloride Level 104 mmol/L (98-107) Carbon Dioxide Level 24 mmol/L (21-32) Anion Gap 13 (6-14) Blood Urea Nitrogen 35 mg/dL (7-20) Creatinine 1.0 mg/dL (0.6-1.0) Estimated GFR (Cockcroft-Gault) 54.7 Glucose Level 169 mg/dL (70-99) Calcium Level 8.6 mg/dL (8.5-10.1) Test 05/30/21 08:00 Glucose (Fingerstick) 206 mg/dL (70-99) Medications Active Scripts Medications Dose Route/Sig Max Daily Dose Days Date Category Metformin Hcl 500 Mg Tablet 500 Mg PO BID 05/29/21 Reported Losartan Potassium 50 Mg Tablet 50 Mg PO DAILY 05/29/21 Reported Tylenol (Acetaminophen) 325 Mg Tablet 1 Tab PO PRN Q4HRS 07/12/19 Reported Metformin Hcl 1,000 Mg Tablet 1,000 Mg PO [id number] 07/12/19 Reported Proair Hfa Inhaler (Albuterol Sulfate) 8.5 Gm Hfa.aer.ad 2 Puff IH PRN Q4-6HRS PRN 21 07/12/19 Reported Pravastatin Sodium 10 Mg Tablet 40 Mg PO DAILY 09/09/17 Reported Losartan Potassium (Losartan Potassium) 25 Mg Tablet 25 Mg PO DAILY 09/09/17 Reported Amlodipine Besylate 5 Mg Tablet 5 Mg PO DAILY 09/09/17 Reported Impression . IMPRESSION: 1. Fever, suspect viral in nature. 2. Abnormal x-ray revealing some chronic changes. 3. Chronic obstructive pulmonary disease with exacerbation. 4. Morbid obesity. 5. Obstructive sleep apnea. 6. Back pain, suspect musculoskeletal. Plan . PLAN: 1. Continue empiric antibiotics. 2. Check urinalysis. 3. Continue nebulized treatments. I do appreciate the privilege in sharing in the patient's care. CLIFFORD MELO MD May 30, 2021 08:36
[2021-05-30] MEDS: metFORMIN 500 MG TABLET PO SCH ×2 (08:57→16:58)
[2021-05-30] MEDS: ASPIRIN ENTERIC COATED 81 MG TABLET.DR. PO SCH (08:57)
[2021-05-30] MEDS: ENOXAPARIN 40 MG/0.4 ML SYRINGE. SQ SCH (08:58)
[2021-05-30] MEDS: LOSARTAN POTASSIUM 50 MG TABLET. PO SCH (08:58)
[2021-05-30] MEDS ORDERED: LOSARTAN POTASSIUM 50 MG TABLET. PO SCH (09:00)
[2021-05-30] MEDS: INSULIN LISPRO 300 UNITS/3 ML VIAL. SQ SCH ×3 (09:06→17:00)
[2021-05-30 09:26] LABS: % LYMPHS 11 % (24-48); % MONOS 5 % (0-10); % SEGS 84 % (35-66); PLT ESTIMATE ADEQUATE (ADEQUATE)
--- NOTE | 2021-05-30 09:58 | NUR ---
SW following. Discussed with RN, pt from home with , will likely need a 6 minute walk prior to discharge home. PT/OT ordered. Pulmonology following. Flu and COVID-19 negative. SW will continue to follow.
--- NOTE | 2021-05-30 10:39 | PDOC ---
PROGRESS NOTES Date of Service DATE: 05/30/21 TIME: 10:35 Subjective Subjective has dyspnea on exertion and lower left back pain. x ray of lumbar spine shows spondylosis with small AAA. coughing,. blood sugar high in part due to steroids. bun up to 35 and will start iv fluids Objective Objective Vital Signs Date Time Temp Pulse Resp B/P (MAP) Pulse Ox O2 Delivery O2 Flow Rate FiO2 05/30/21 08:58 85 109/68 05/30/21 07:00 97.9 18 93 Nasal Cannula 2.0 97.9 Intake and Output 05/30/21 07:00 Intake Total 1440 ml Balance 1440 ml Intake Oral 1440 ml # Voids 4 Physical Exam Abdomen: Soft Heart: Regular rate, Normal S1, Normal S2 Extremities: No edema General: Alert HEENT: Atraumatic Lungs: Other (decreased breath sounds) MUSCULOSKELETAL: Other (tender left lower back and ribs) Neuro: Normal speech Psych/Mental Status: Mental status NL Skin: No rashes Assessment Assessment Problems1. Chronic obstructive pulmonary disease with acute exacerbation. 2. Acute bronchitis. 3. Lumbar strain. 4. Diabetes mellitus type 2. with hyperglycemia 5. Hypertension. 6. Hyperlipidemia. 7. Obstructive sleep apnea. 8. Morbid obesity. 9. Mild leukocytosis. Medical Problems: (1) Back pain Status: Acute (2) COPD exacerbation Status: Acute Plan Plan of Care continue rocephin continue iv solumedrol continue metformin and insulin sliding scale kpad to back abdominal ultrasound x ray left ribs PT and OT start iv fluids Comment Review of Relevant I have reviewed the following items mirta (where applicable) has been applied. Labs Laboratory Tests Test 05/28/21 15:55 05/28/21 16:55 05/29/21 08:34 05/29/21 12:01 Influenza Type A Antigen Negative (NEGATIVE) Influenza Type B Antigen Negative (NEGATIVE) SARS-CoV-2 RNA (ZULEIKA) Negative (Negative) SARS-CoV-2 Antigen (Rapid) Negative (NEGATIVE) White Blood Count 12.1 x10^3/uL (4.0-11.0) Red Blood Count 4.25 x10^6/uL (3.50-5.40) Hemoglobin 10.8 g/dL (12.0-15.5) Hematocrit 34.2 % (36.0-47.0) Mean Corpuscular Volume 81 fL (79-100) Mean Corpuscular Hemoglobin 26 pg (25-35) Mean Corpuscular Hemoglobin Concent 32 g/dL (31-37) Red Cell Distribution Width 16.5 % (11.5-14.5) Platelet Count 261 x10^3/uL (140-400) Neutrophils (%) (Auto) 74 % (31-73) Lymphocytes (%) (Auto) 12 % (24-48) Monocytes (%) (Auto) 13 % (0-9) Eosinophils (%) (Auto) 0 % (0-3) Basophils (%) (Auto) 1 % (0-3) Neutrophils # (Auto) 9.0 x10^3/uL (1.8-7.7) Lymphocytes # (Auto) 1.5 x10^3/uL (1.0-4.8) Monocytes # (Auto) 1.6 x10^3/uL (0.0-1.1) Eosinophils # (Auto) 0.0 x10^3/uL (0.0-0.7) Basophils # (Auto) 0.1 x10^3/uL (0.0-0.2) D-Dimer (Sammie) 1.61 ug/mlFEU (0.00-0.50) Sodium Level 140 mmol/L (136-145) Potassium Level 4.0 mmol/L (3.5-5.1) Chloride Level 101 mmol/L (98-107) Carbon Dioxide Level 23 mmol/L (21-32) Anion Gap 16 (6-14) Blood Urea Nitrogen 20 mg/dL (7-20) Creatinine 1.2 mg/dL (0.6-1.0) Estimated GFR (Cockcroft-Gault) 44.3 BUN/Creatinine Ratio 17 (6-20) Glucose Level 113 mg/dL (70-99) Lactic Acid Level 1.5 mmol/L (0.4-2.0) Calcium Level 8.2 mg/dL (8.5-10.1) Total Bilirubin 0.3 mg/dL (0.2-1.0) Aspartate Amino Transf (AST/SGOT) 18 U/L (15-37) Alanine Aminotransferase (ALT/SGPT) 16 U/L (14-59) Alkaline Phosphatase 65 U/L (46-116) Troponin I High Sensitivity 10 ng/L (4-50) Total Protein 7.9 g/dL (6.4-8.2) Albumin 3.0 g/dL (3.4-5.0) Albumin/Globulin Ratio 0.6 (1.0-1.7) Glucose (Fingerstick) 145 mg/dL (70-99) 201 mg/dL (70-99) Test 05/29/21 16:35 05/29/21 20:46 05/30/21 06:10 05/30/21 08:00 Glucose (Fingerstick) 250 mg/dL (70-99) 234 mg/dL (70-99) 206 mg/dL (70-99) White Blood Count 15.5 x10^3/uL (4.0-11.0) Red Blood Count 3.76 x10^6/uL (3.50-5.40) Hemoglobin 9.6 g/dL (12.0-15.5) Hematocrit 30.7 % (36.0-47.0) Mean Corpuscular Volume 82 fL (79-100) Mean Corpuscular Hemoglobin 26 pg (25-35) Mean Corpuscular Hemoglobin Concent 31 g/dL (31-37) Red Cell Distribution Width 16.3 % (11.5-14.5) Platelet Count 320 x10^3/uL (140-400) Neutrophils (%) (Auto) 87 % (31-73) Lymphocytes (%) (Auto) 8 % (24-48) Monocytes (%) (Auto) 5 % (0-9) Eosinophils (%) (Auto) 0 % (0-3) Basophils (%) (Auto) 0 % (0-3) Neutrophils # (Auto) 13.4 x10^3/uL (1.8-7.7) Lymphocytes # (Auto) 1.2 x10^3/uL (1.0-4.8) Monocytes # (Auto) 0.8 x10^3/uL (0.0-1.1) Eosinophils # (Auto) 0.0 x10^3/uL (0.0-0.7) Basophils # (Auto) 0.0 x10^3/uL (0.0-0.2) Segmented Neutrophils % 84 % (35-66) Lymphocytes % 11 % (24-48) Monocytes % 5 % (0-10) Platelet Estimate Adequate (ADEQUATE) Sodium Level 141 mmol/L (136-145) Potassium Level 4.9 mmol/L (3.5-5.1) Chloride Level 104 mmol/L (98-107) Carbon Dioxide Level 24 mmol/L (21-32) Anion Gap 13 (6-14) Blood Urea Nitrogen 35 mg/dL (7-20) Creatinine 1.0 mg/dL (0.6-1.0) Estimated GFR (Cockcroft-Gault) 54.7 Glucose Level 169 mg/dL (70-99) Calcium Level 8.6 mg/dL (8.5-10.1) Laboratory Tests Test 05/29/21 12:01 05/29/21 16:35 05/29/21 20:46 05/30/21 06:10 Glucose (Fingerstick) 201 mg/dL (70-99) 250 mg/dL (70-99) 234 mg/dL (70-99) White Blood Count 15.5 x10^3/uL (4.0-11.0) Red Blood Count 3.76 x10^6/uL (3.50-5.40) Hemoglobin 9.6 g/dL (12.0-15.5) Hematocrit 30.7 % (36.0-47.0) Mean Corpuscular Volume 82 fL (79-100) Mean Corpuscular Hemoglobin 26 pg (25-35) Mean Corpuscular Hemoglobin Concent 31 g/dL (31-37) Red Cell Distribution Width 16.3 % (11.5-14.5) Platelet Count 320 x10^3/uL (140-400) Neutrophils (%) (Auto) 87 % (31-73) Lymphocytes (%) (Auto) 8 % (24-48) Monocytes (%) (Auto) 5 % (0-9) Eosinophils (%) (Auto) 0 % (0-3) Basophils (%) (Auto) 0 % (0-3) Neutrophils # (Auto) 13.4 x10^3/uL (1.8-7.7) Lymphocytes # (Auto) 1.2 x10^3/uL (1.0-4.8) Monocytes # (Auto) 0.8 x10^3/uL (0.0-1.1) Eosinophils # (Auto) 0.0 x10^3/uL (0.0-0.7) Basophils # (Auto) 0.0 x10^3/uL (0.0-0.2) Segmented Neutrophils % 84 % (35-66) Lymphocytes % 11 % (24-48) Monocytes % 5 % (0-10) Platelet Estimate Adequate (ADEQUATE) Sodium Level 141 mmol/L (136-145) Potassium Level 4.9 mmol/L (3.5-5.1) Chloride Level 104 mmol/L (98-107) Carbon Dioxide Level 24 mmol/L (21-32) Anion Gap 13 (6-14) Blood Urea Nitrogen 35 mg/dL (7-20) Creatinine 1.0 mg/dL (0.6-1.0) Estimated GFR (Cockcroft-Gault) 54.7 Glucose Level 169 mg/dL (70-99) Calcium Level 8.6 mg/dL (8.5-10.1) Test 05/30/21 08:00 Glucose (Fingerstick) 206 mg/dL (70-99) Microbiology 05/28/21 Blood Culture - Preliminary, Resulted NO GROWTH AFTER 1 DAY Medications Current Medications Dexamethasone Sodium Phosphate (Decadron) 10 mg 1X ONCE IV Last administered on 05/28/21at 16:18; Start 05/28/21 at 15:30; Stop 05/28/21 at 15:31; Status DC Albuterol/ Ipratropium (Duoneb) 3 ml 1X ONCE NEB Last administered on 05/28/21at 15:48; Start 05/28/21 at 15:45; Stop 05/28/21 at 15:46; Status DC Fentanyl Citrate (Fentanyl 2ml Vial) 50 mcg 1X ONCE IVP Last administered on 05/28/21at 18:28; Start 05/28/21 at 18:15; Stop 05/28/21 at 18:16; Status DC Ceftriaxone Sodium (Rocephin) 1 gm 1X ONCE IVP Last administered on 05/28/21at 20:04; Start 05/28/21 at 19:00; Stop 05/28/21 at 19:01; Status DC Morphine Sulfate (Morphine Sulfate) 2 mg PRN Q2HR PRN IVP PAIN; Start 05/28/21 at 18:45; Stop 05/29/21 at 18:44; Status DC Methylprednisolone Sodium Succinate (SOLU-Medrol 125MG VIAL) 125 mg DAILY IV Last administered on 05/29/21at 09:13; Start 05/29/21 at 09:00; Stop 05/29/21 at 14:00; Status DC Albuterol Sulfate (Ventolin Neb Soln) 2.5 mg PRN Q4HRS PRN NEB WHEEZING; Start 05/28/21 at 18:45; Stop 05/29/21 at 14:00; Status DC Amlodipine Besylate (Norvasc) 5 mg 1X ONCE PO ; Start 05/28/21 at 19:00; Stop 05/28/21 at 19:01; Status DC Losartan Potassium (Cozaar) 50 mg DAILY PO Last administered on 05/30/21at 08:58; Start 05/28/21 at 19:00 Metformin HCl (Glucophage) 500 mg BIDWMEALS PO Last administered on 05/30/21at 08:57; Start 05/29/21 at 08:00 Albuterol/ Ipratropium (Duoneb) 3 ml RTQID NEB Last administered on 05/30/21at 06:56; Start 05/29/21 at 16:00 Aspirin (Ecotrin) 81 mg DAILYWBKFT PO Last administered on 05/30/21at 08:57; Start 05/30/21 at 08:00 Losartan Potassium (Cozaar) 50 mg DAILY PO ; Start 05/30/21 at 09:00; Status UNV Insulin Human Lispro (HumaLOG) 0-6 UNITs BG 300-39... TIDWMEALS SQ Last administered on 05/30/21at 09:06; Start 05/29/21 at 17:00 Enoxaparin Sodium (Lovenox 40mg Syringe) 40 mg Q12HR SQ Last administered on 05/30/21at 08:58; Start 05/29/21 at 15:00 Cyclobenzaprine HCl (Flexeril) 5 mg PRN Q6HRS PRN PO MUSCLE SPASMS; Start 05/29/21 at 13:45 Acetaminophen (Tylenol) 650 mg PRN Q6HRS PRN PO MILD PAIN / TEMP > 100.3'F; Start 05/29/21 at 13:45 Ceftriaxone Sodium (Rocephin) 1 gm Q24H IVP Last administered on 05/29/21at 19:42; Start 05/29/21 at 19:00 Active Scripts Active Reported Metformin Hcl 500 Mg Tablet 500 Mg PO BID Losartan Potassium 50 Mg Tablet 50 Mg PO DAILY Tylenol (Acetaminophen) 325 Mg Tablet 1 Tab PO PRN Q4HRS Metformin Hcl 1,000 Mg Tablet 1,000 Mg PO DAILYWBKFT Proair Hfa Inhaler (Albuterol Sulfate) 8.5 Gm Hfa.aer.ad 2 Puff IH PRN Q4-6HRS PRN 21 Days Pravastatin Sodium 10 Mg Tablet 40 Mg PO DAILY Losartan Potassium (Losartan Potassium) 25 Mg Tablet 25 Mg PO DAILY Amlodipine Besylate 5 Mg Tablet 5 Mg PO DAILY Vitals/I & O Vital Sign - Last 24 Hours 05/29/21 05/29/21 05/29/21 05/29/21 11:00 15:00 15:13 19:24 Temp 97.6 98.5 98.2 97.6 98.5 98.2 Pulse 93 108 98 Resp 20 20 18 B/P (MAP) 142/61 (88) 126/68 (87) 118/57 (77) Pulse Ox 95 93 96 90 O2 Delivery Nasal Cannula Nasal Cannula Nasal Cannula Room Air O2 Flow Rate 2.0 05/29/21 05/29/21 05/29/21 05/30/21 19:32 20:00 23:15 03:00 Temp 98.0 97.8 98.0 97.8 Pulse 96 88 Resp 18 18 B/P (MAP) 131/77 (95) 113/58 (76) Pulse Ox 93 92 90 O2 Delivery Room Air Nasal Cannula Room Air Nasal Cannula O2 Flow Rate 2.0 2.0 05/30/21 05/30/21 05/30/21 06:58 07:00 08:58 Temp 97.9 97.9 Pulse 85 85 Resp 18 B/P (MAP) 109/68 (82) 109/68 Pulse Ox 96 93 O2 Delivery Nasal Cannula Nasal Cannula O2 Flow Rate 2.0 2.0 Intake and Output 05/29/21 05/29/21 05/30/21 15:00 23:00 07:00 Intake Total 600 ml 600 ml 240 ml Balance 600 ml 600 ml 240 ml Justifications for Admission Other Justification SID HUNG MD May 30, 2021 10:39
[2021-05-30] MEDS ORDERED: guaiFENesin DM 200MG/20MG 10 ML SYRUP PO PRN (10:45)
[2021-05-30 11:00] VITALS: BP 146/75
[2021-05-30] MEDS: methylPREDNISolone SOD SUCC PF 40 MG/ML VIAL. IV SCH ×2 (11:40→22:06)
[2021-05-30] MEDS: IV 1/2 NORMAL SALINE 1,000 ML IV SCH (11:41)
[2021-05-30 15:00] VITALS: BP 134/66
--- NOTE | 2021-05-30 15:23 | RAD ---
EXAM: Left ribs, 2 views. HISTORY: Pain. COMPARISON: None. FINDINGS: 2 views of the left ribs are obtained. No displaced fracture is seen. There is no consolida tion, pleural effusion or pneumothorax. IMPRESSION: No acute osseous finding. Electronically signed by: Haven Lombardo MD (05/30/2021 3:20 PM) [id number]
[2021-05-30 19:30] VITALS: BP 126/63
[2021-05-30] MEDS: cefTRIAXone IV Push 1 GM VIAL. IVP SCH (20:14)
[2021-05-30 23:39] VITALS: BP 136/77
[2021-05-31 03:20] VITALS: BP 124/38
[2021-05-31 06:45] LABS: CALCIUM 8.8 mg/dL (8.5-10.1); CREATININE 0.9 mg/dL (0.6-1.0); GFR 61.7; POTASSIUM 5.5 mmol/L (3.5-5.1)
[2021-05-31 07:15] VITALS: BP 150/69
--- NOTE | 2021-05-31 07:32 | PDOC ---
PULMONARY PROGRESS NOTES DATE: 05/31/21 TIME: 07:32 Vitals Vital Signs Date Time Temp Pulse Resp B/P (MAP) Pulse Ox O2 Delivery O2 Flow Rate FiO2 05/31/21 03:20 98.4 81 20 124/38 (66) 91 Room Air 98.4 05/30/21 15:00 2.0 Labs Laboratory Tests Test 05/29/21 08:34 05/29/21 12:01 05/29/21 16:35 05/29/21 20:46 Glucose (Fingerstick) 145 mg/dL (70-99) 201 mg/dL (70-99) 250 mg/dL (70-99) 234 mg/dL (70-99) Test 05/30/21 06:10 05/30/21 08:00 05/30/21 12:33 05/30/21 17:16 White Blood Count 15.5 x10^3/uL (4.0-11.0) Red Blood Count 3.76 x10^6/uL (3.50-5.40) Hemoglobin 9.6 g/dL (12.0-15.5) Hematocrit 30.7 % (36.0-47.0) Mean Corpuscular Volume 82 fL (79-100) Mean Corpuscular Hemoglobin 26 pg (25-35) Mean Corpuscular Hemoglobin Concent 31 g/dL (31-37) Red Cell Distribution Width 16.3 % (11.5-14.5) Platelet Count 320 x10^3/uL (140-400) Neutrophils (%) (Auto) 87 % (31-73) Lymphocytes (%) (Auto) 8 % (24-48) Monocytes (%) (Auto) 5 % (0-9) Eosinophils (%) (Auto) 0 % (0-3) Basophils (%) (Auto) 0 % (0-3) Neutrophils # (Auto) 13.4 x10^3/uL (1.8-7.7) Lymphocytes # (Auto) 1.2 x10^3/uL (1.0-4.8) Monocytes # (Auto) 0.8 x10^3/uL (0.0-1.1) Eosinophils # (Auto) 0.0 x10^3/uL (0.0-0.7) Basophils # (Auto) 0.0 x10^3/uL (0.0-0.2) Segmented Neutrophils % 84 % (35-66) Lymphocytes % 11 % (24-48) Monocytes % 5 % (0-10) Platelet Estimate Adequate (ADEQUATE) Sodium Level 141 mmol/L (136-145) Potassium Level 4.9 mmol/L (3.5-5.1) Chloride Level 104 mmol/L (98-107) Carbon Dioxide Level 24 mmol/L (21-32) Anion Gap 13 (6-14) Blood Urea Nitrogen 35 mg/dL (7-20) Creatinine 1.0 mg/dL (0.6-1.0) Estimated GFR (Cockcroft-Gault) 54.7 Glucose Level 169 mg/dL (70-99) Calcium Level 8.6 mg/dL (8.5-10.1) Glucose (Fingerstick) 206 mg/dL (70-99) 155 mg/dL (70-99) 202 mg/dL (70-99) Test 05/30/21 20:56 05/31/21 05:35 Glucose (Fingerstick) 198 mg/dL (70-99) Sodium Level 141 mmol/L (136-145) Potassium Level 5.5 mmol/L (3.5-5.1) Chloride Level 106 mmol/L (98-107) Carbon Dioxide Level 24 mmol/L (21-32) Anion Gap 11 (6-14) Blood Urea Nitrogen 31 mg/dL (7-20) Creatinine 0.9 mg/dL (0.6-1.0) Estimated GFR (Cockcroft-Gault) 61.7 Glucose Level 164 mg/dL (70-99) Calcium Level 8.8 mg/dL (8.5-10.1) Laboratory Tests Test 05/30/21 08:00 05/30/21 12:33 05/30/21 17:16 05/30/21 20:56 Glucose (Fingerstick) 206 mg/dL (70-99) 155 mg/dL (70-99) 202 mg/dL (70-99) 198 mg/dL (70-99) Test 05/31/21 05:35 Sodium Level 141 mmol/L (136-145) Potassium Level 5.5 mmol/L (3.5-5.1) Chloride Level 106 mmol/L (98-107) Carbon Dioxide Level 24 mmol/L (21-32) Anion Gap 11 (6-14) Blood Urea Nitrogen 31 mg/dL (7-20) Creatinine 0.9 mg/dL (0.6-1.0) Estimated GFR (Cockcroft-Gault) 61.7 Glucose Level 164 mg/dL (70-99) Calcium Level 8.8 mg/dL (8.5-10.1) Medications Active Scripts Medications Dose Route/Sig Max Daily Dose Days Date Category Metformin Hcl 500 Mg Tablet 500 Mg PO BID 05/29/21 Reported Losartan Potassium 50 Mg Tablet 50 Mg PO DAILY 05/29/21 Reported Tylenol (Acetaminophen) 325 Mg Tablet 1 Tab PO PRN Q4HRS 07/12/19 Reported Metformin Hcl 1,000 Mg Tablet 1,000 Mg PO DAILYWBKFT 07/12/19 Reported Proair Hfa Inhaler (Albuterol Sulfate) 8.5 Gm Hfa.aer.ad 2 Puff IH PRN Q4-6HRS PRN 21 07/12/19 Reported Pravastatin Sodium 10 Mg Tablet 40 Mg PO DAILY 09/09/17 Reported Losartan Potassium (Losartan Potassium) 25 Mg Tablet 25 Mg PO DAILY 09/09/17 Reported Amlodipine Besylate 5 Mg Tablet 5 Mg PO DAILY 09/09/17 Reported Impression . IMPRESSION: 1. Fever, suspect viral in nature. 2. Abnormal x-ray revealing some chronic changes. 3. Chronic obstructive pulmonary disease with exacerbation. 4. Morbid obesity. 5. Obstructive sleep apnea. 6. Back pain, suspect musculoskeletal. Plan . PLAN: 1. Continue empiric antibiotics. 2. Check urinalysis. 3. Continue nebulized treatments. I do appreciate the privilege in sharing in the patient's care. CLIFFORD MELO MD May 31, 2021 07:32
[2021-05-31] MEDS: IPRATRPIUM/ALBUTEROL 0.5/2.5MG 3 ML NEBU. NEB SCH ×2 (07:54→11:43)
[2021-05-31] MEDS: INSULIN LISPRO 300 UNITS/3 ML VIAL. SQ SCH ×2 (08:00→11:29)
[2021-05-31] MEDS: methylPREDNISolone SOD SUCC PF 40 MG/ML VIAL. IV SCH (08:03)
[2021-05-31] MEDS: LOSARTAN POTASSIUM 50 MG TABLET. PO SCH (08:03)
[2021-05-31] MEDS: ASPIRIN ENTERIC COATED 81 MG TABLET.DR. PO SCH (08:03)
[2021-05-31] MEDS: metFORMIN 500 MG TABLET PO SCH (08:03)
[2021-05-31] MEDS ORDERED: LACTOBACILLUS RHAMNOSUS GG 1 CAPSULE. PO SCH (09:00)
[2021-05-31] MEDS ORDERED: ENOXAPARIN 40 MG/0.4 ML SYRINGE. SQ SCH (09:00)
[2021-05-31] MEDS: IV 1/2 NORMAL SALINE 1,000 ML IV SCH (10:30)
[2021-05-31 10:51] VITALS: BP 142/59
--- NOTE | 2021-05-31 11:49 | PDOC ---
PROGRESS NOTES Date of Service DATE: 05/31/21 TIME: 11:45 Subjective Subjective feels better . wants to go home,. not short of breath. off oxygen. back pain better. x ray left ribs negative. PT recommends home health with walker. discussed with her nurse. hgb lower 9.6 with hydration. blood sugars reviewed. potassium 5.5. and will d/c losartan and order kayexelate. and start low dose amlodipine Objective Objective Vital Signs Date Time Temp Pulse Resp B/P (MAP) Pulse Ox O2 Delivery O2 Flow Rate FiO2 05/31/21 10:51 97.7 94 20 142/59 (86) 95 Room Air 97.7 05/30/21 15:00 2.0 Intake and Output 05/31/21 07:00 Intake Total 240 ml Balance 240 ml Intake Oral 240 ml # Voids 1 Physical Exam Abdomen: Soft Heart: Regular rate, Normal S1, Normal S2 Extremities: No edema General: Alert HEENT: Atraumatic Lungs: Clear to auscultation Neuro: Normal speech Psych/Mental Status: Mental status NL Skin: No rashes Assessment Assessment Problems1. Chronic obstructive pulmonary disease with acute exacerbation. improved 2. Acute bronchitis. 3. Lumbar strain. 4. Diabetes mellitus type 2. with steroid induced hyperglycemia 5. Hypertension. 6. Hyperlipidemia. 7. Obstructive sleep apnea. 8. Morbid obesity. 9. Mild leukocytosis.due to steroids anemia. drop in hgb due to hydration Medical Problems: (1) Back pain Status: Acute (2) COPD exacerbation Status: Acute Plan Plan of Care change to prednisone taper and augmentin home with home health and PT and walker dismiss today Comment Review of Relevant I have reviewed the following items mirta (where applicable) has been applied. Labs Laboratory Tests Test 05/29/21 12:01 05/29/21 16:35 05/29/21 20:46 05/30/21 06:10 Glucose (Fingerstick) 201 mg/dL (70-99) 250 mg/dL (70-99) 234 mg/dL (70-99) White Blood Count 15.5 x10^3/uL (4.0-11.0) Red Blood Count 3.76 x10^6/uL (3.50-5.40) Hemoglobin 9.6 g/dL (12.0-15.5) Hematocrit 30.7 % (36.0-47.0) Mean Corpuscular Volume 82 fL (79-100) Mean Corpuscular Hemoglobin 26 pg (25-35) Mean Corpuscular Hemoglobin Concent 31 g/dL (31-37) Red Cell Distribution Width 16.3 % (11.5-14.5) Platelet Count 320 x10^3/uL (140-400) Neutrophils (%) (Auto) 87 % (31-73) Lymphocytes (%) (Auto) 8 % (24-48) Monocytes (%) (Auto) 5 % (0-9) Eosinophils (%) (Auto) 0 % (0-3) Basophils (%) (Auto) 0 % (0-3) Neutrophils # (Auto) 13.4 x10^3/uL (1.8-7.7) Lymphocytes # (Auto) 1.2 x10^3/uL (1.0-4.8) Monocytes # (Auto) 0.8 x10^3/uL (0.0-1.1) Eosinophils # (Auto) 0.0 x10^3/uL (0.0-0.7) Basophils # (Auto) 0.0 x10^3/uL (0.0-0.2) Segmented Neutrophils % 84 % (35-66) Lymphocytes % 11 % (24-48) Monocytes % 5 % (0-10) Platelet Estimate Adequate (ADEQUATE) Sodium Level 141 mmol/L (136-145) Potassium Level 4.9 mmol/L (3.5-5.1) Chloride Level 104 mmol/L (98-107) Carbon Dioxide Level 24 mmol/L (21-32) Anion Gap 13 (6-14) Blood Urea Nitrogen 35 mg/dL (7-20) Creatinine 1.0 mg/dL (0.6-1.0) Estimated GFR (Cockcroft-Gault) 54.7 Glucose Level 169 mg/dL (70-99) Calcium Level 8.6 mg/dL (8.5-10.1) Test 05/30/21 08:00 05/30/21 12:33 05/30/21 17:16 05/30/21 20:56 Glucose (Fingerstick) 206 mg/dL (70-99) 155 mg/dL (70-99) 202 mg/dL (70-99) 198 mg/dL (70-99) Test 05/31/21 05:35 05/31/21 07:32 05/31/21 11:20 Sodium Level 141 mmol/L (136-145) Potassium Level 5.5 mmol/L (3.5-5.1) Chloride Level 106 mmol/L (98-107) Carbon Dioxide Level 24 mmol/L (21-32) Anion Gap 11 (6-14) Blood Urea Nitrogen 31 mg/dL (7-20) Creatinine 0.9 mg/dL (0.6-1.0) Estimated GFR (Cockcroft-Gault) 61.7 Glucose Level 164 mg/dL (70-99) Calcium Level 8.8 mg/dL (8.5-10.1) Glucose (Fingerstick) 131 mg/dL (70-99) 160 mg/dL (70-99) Laboratory Tests Test 05/30/21 12:33 05/30/21 17:16 05/30/21 20:56 05/31/21 05:35 Glucose (Fingerstick) 155 mg/dL (70-99) 202 mg/dL (70-99) 198 mg/dL (70-99) Sodium Level 141 mmol/L (136-145) Potassium Level 5.5 mmol/L (3.5-5.1) Chloride Level 106 mmol/L (98-107) Carbon Dioxide Level 24 mmol/L (21-32) Anion Gap 11 (6-14) Blood Urea Nitrogen 31 mg/dL (7-20) Creatinine 0.9 mg/dL (0.6-1.0) Estimated GFR (Cockcroft-Gault) 61.7 Glucose Level 164 mg/dL (70-99) Calcium Level 8.8 mg/dL (8.5-10.1) Test 05/31/21 07:32 05/31/21 11:20 Glucose (Fingerstick) 131 mg/dL (70-99) 160 mg/dL (70-99) Microbiology 05/28/21 Blood Culture - Preliminary, Resulted NO GROWTH AFTER 2 DAYS Medications Current Medications Dexamethasone Sodium Phosphate (Decadron) 10 mg 1X ONCE IV Last administered on 05/28/21at 16:18; Start 05/28/21 at 15:30; Stop 05/28/21 at 15:31; Status DC Albuterol/ Ipratropium (Duoneb) 3 ml 1X ONCE NEB Last administered on 05/28/21at 15:48; Start 05/28/21 at 15:45; Stop 05/28/21 at 15:46; Status DC Fentanyl Citrate (Fentanyl 2ml Vial) 50 mcg 1X ONCE IVP Last administered on 05/28/21at 18:28; Start 05/28/21 at 18:15; Stop 05/28/21 at 18:16; Status DC Ceftriaxone Sodium (Rocephin) 1 gm 1X ONCE IVP Last administered on 05/28/21at 20:04; Start 05/28/21 at 19:00; Stop 05/28/21 at 19:01; Status DC Morphine Sulfate (Morphine Sulfate) 2 mg PRN Q2HR PRN IVP PAIN; Start 05/28/21 at 18:45; Stop 05/29/21 at 18:44; Status DC Methylprednisolone Sodium Succinate (SOLU-Medrol 125MG VIAL) 125 mg DAILY IV Last administered on 05/29/21at 09:13; Start 05/29/21 at 09:00; Stop 05/29/21 at 14:00; Status DC Albuterol Sulfate (Ventolin Neb Soln) 2.5 mg PRN Q4HRS PRN NEB WHEEZING; Start 05/28/21 at 18:45; Stop 05/29/21 at 14:00; Status DC Amlodipine Besylate (Norvasc) 5 mg 1X ONCE PO ; Start 05/28/21 at 19:00; Stop 05/28/21 at 19:01; Status DC Losartan Potassium (Cozaar) 50 mg DAILY PO Last administered on 05/31/21at 08:03; Start 05/28/21 at 19:00 Metformin HCl (Glucophage) 500 mg BIDWMEALS PO Last administered on 05/31/21at 08:03; Start 05/29/21 at 08:00 Albuterol/ Ipratropium (Duoneb) 3 ml RTQID NEB Last administered on 05/31/21at 11:43; Start 05/29/21 at 16:00 Aspirin (Ecotrin) 81 mg DAILYWBKFT PO Last administered on 05/31/21at 08:03; Start 05/30/21 at 08:00 Losartan Potassium (Cozaar) 50 mg DAILY PO ; Start 05/30/21 at 09:00; Status UNV Insulin Human Lispro (HumaLOG) 0-6 UNITs BG 300-39... TIDWMEALS SQ Last administered on 05/30/21at 09:06; Start 05/29/21 at 17:00 Enoxaparin Sodium (Lovenox 40mg Syringe) 40 mg Q12HR SQ Last administered on 05/30/21at 08:58; Start 05/29/21 at 15:00; Stop 05/30/21 at 10:42; Status DC Cyclobenzaprine HCl (Flexeril) 5 mg PRN Q6HRS PRN PO MUSCLE SPASMS; Start 05/29/21 at 13:45 Acetaminophen (Tylenol) 650 mg PRN Q6HRS PRN PO MILD PAIN / TEMP > 100.3'F; Start 05/29/21 at 13:45 Ceftriaxone Sodium (Rocephin) 1 gm Q24H IVP Last administered on 05/30/21at 20:14; Start 05/29/21 at 19:00 Methylprednisolone Sodium Succinate (SOLU-Medrol 40MG VIAL) 40 mg Q12HR IV Last administered on 05/31/21at 08:03; Start 05/30/21 at 11:00 Sodium Chloride 1,000 ml @ 40 mls/hr Q24H IV Last administered on 05/30/21at 11:41; Start 05/30/21 at 10:30 Enoxaparin Sodium (Lovenox 40mg Syringe) 40 mg DAILY SQ Last administered on 05/31/21at 08:02; Start 05/31/21 at 09:00 Guaifenesin (Robitussin Dm) 10 ml PRN Q6HRS PRN PO COUGH; Start 05/30/21 at 10:45 Lactobacillus Rhamnosus (Culturelle) 1 cap BID PO Last administered on 05/31/21at 08:07; Start 05/31/21 at 09:00 Active Scripts Active Reported Metformin Hcl 500 Mg Tablet 500 Mg PO BID Losartan Potassium 50 Mg Tablet 50 Mg PO DAILY Tylenol (Acetaminophen) 325 Mg Tablet 1 Tab PO PRN Q4HRS Metformin Hcl 1,000 Mg Tablet 1,000 Mg PO [id number] Proair Hfa Inhaler (Albuterol Sulfate) 8.5 Gm Hfa.aer.ad 2 Puff IH PRN Q4-6HRS PRN 21 Days Pravastatin Sodium 10 Mg Tablet 40 Mg PO DAILY Losartan Potassium (Losartan Potassium) 25 Mg Tablet 25 Mg PO DAILY Amlodipine Besylate 5 Mg Tablet 5 Mg PO DAILY Vitals/I & O Vital Sign - Last 24 Hours 05/30/21 05/30/21 05/30/21 05/30/21 15:00 18:18 19:30 23:39 Temp 97.9 98.2 98.3 97.9 98.2 98.3 Pulse 102 98 94 Resp 18 20 18 B/P (MAP) 134/66 (88) 126/63 (84) 136/77 (96) Pulse Ox 92 96 91 91 O2 Delivery Nasal Cannula Room Air Room Air Room Air O2 Flow Rate 2.0 05/31/21 05/31/21 05/31/21 05/31/21 03:20 07:15 07:54 08:00 Temp 98.4 98.4 98.4 98.4 Pulse 81 97 Resp 20 20 B/P (MAP) 124/38 (66) 150/69 (96) Pulse Ox 91 98 98 O2 Delivery Room Air Room Air Room Air Room Air 05/31/21 05/31/21 08:03 10:51 Temp 97.7 97.7 Pulse 97 94 Resp 20 B/P (MAP) 150/69 142/59 (86) Pulse Ox 95 O2 Delivery Room Air Intake and Output 05/30/21 05/30/21 05/31/21 15:00 23:00 07:00 Intake Total 240 ml Balance 240 ml Justifications for Admission Other Justification SID HUNG MD May 31, 2021 11:49
[2021-05-31] MEDS ORDERED: PRED-220 PO (11:57)
[2021-05-31] MEDS ORDERED: AMOX1TAB11 PO (11:57)
[2021-05-31] MEDS ORDERED: ASPI-886 PO (11:57)
[2021-05-31] MEDS ORDERED: CYCL10TA19 PO (11:57)
--- NOTE | 2021-05-31 11:59 | SNU/HH DC ---
DISCHARGE WITH HOME HEALTH DISCHARGE INFORMATION: Discharge Date: May 31, 2021 Final Diagnosis: Problems copd exacerbation and lumbar strain and anemia Medical Problems: (1) Back pain Status: Acute (2) COPD exacerbation Status: Acute Condition on Discharge: Stable CODE STATUS: Code Status: Full HOME HEALTH: Face to Face: I certify this patient is under my care and that I, or a nurse practitioner or physician's medical research assistant working with me, had a face to face encounter that meets the physician face to face encounter requirements with this patient on [05/31/21]. RN For Eval/Treatment: Yes Physical Therapy For: Evalulation/Treatment Occupational Therapy For: Evaluation/Treatment Pt Meets Homebound Status: Fatigue w/ amb. POST DISCHARGE ORDERS: Activity Instructions for Disc: Activity as tolerated DIET AFTER DISCHARGE: ADA CHECKS AFTER DISCHARGE: Checks after discharge: Check blood press - daily FOLLOW-UP: PCP to follow Home Health: dr. hung Follow up with: dr. hung next week CERTIFICATION STATEMENT: Certification Statement: Certification Statement: Based on the above finding, I certify that this patient is confined to the home and needs intermittent half-way care, physical therapy and/or speech therapy, or continues to need occupational therapy.~ This patient is under my care, and I have initiated the establishment of the plan of care.~ This patient will be followed by myself or a community physician who will periodically review the plan of care. Home Meds Active Scripts Prednisone (PREDNISONE ) 10 Mg Tablet, 40 MG PO DAILY for copd exacerbation, #10 TAB 40 mg daily for 2 days then 30 mg daily for 2 days then 20 mg daily for 2 days then 10 mg daily for 2 days then stop Prov:SID HUNG MD 05/31/21 Aspirin (ASPIRIN EC) 81 Mg Tablet.dr, 81 MG PO DAILYWBKFT for blood thinner, #30 TAB.SR Prov:SID UHNG MD 05/31/21 Cyclobenzaprine Hcl (CYCLOBENZAPRINE HCL) 10 Mg Tablet, 5 MG PO TID PRN PRN for MUSCLE SPASMS, #30 TAB Prov:SID HUNG MD 05/31/21 Amoxicillin/Potassium Clav (AMOX TR-K CLV 875-125 MG TAB) 1 Each Tablet, 1 TAB PO BID for acute bronchitis, #10 TAB Prov:SID HUNG MD 05/31/21 Reported Medications Metformin Hcl (METFORMIN HCL) 500 Mg Tablet, 500 MG PO BID for Diabetes 05/29/21 Acetaminophen (TYLENOL) 325 Mg Tablet, 1 TAB PO PRN Q4HRS for pain, #30 TAB 07/12/19 Albuterol Sulfate (PROAIR HFA INHALER) 8.5 Gm Hfa.aer.ad, 2 PUFF IH PRN Q4-6HRS PRN for wheezing for 21 Days, #1 INHALER 0 Refills 07/12/19 Pravastatin Sodium (PRAVASTATIN SODIUM) 10 Mg Tablet, 40 MG PO DAILY for hld, TAB 09/09/17 Amlodipine Besylate (AMLODIPINE BESYLATE) 5 Mg Tablet, 5 MG PO DAILY, TAB 09/09/17 Discontinued Reported Medications Losartan Potassium (Losartan Potassium) 50 Mg Tablet, 50 MG PO DAILY for HTN 05/29/21 Metformin Hcl (METFORMIN HCL) 1,000 Mg Tablet, 1000 MG PO DAILYWBKFT for ANTI- DIABETIC, TAB 0 Refills 07/12/19 Losartan Potassium (LOSARTAN POTASSIUM ) 25 Mg Tablet, 25 MG PO DAILY, TAB 09/09/17 SID HUNG MD May 31, 2021 11:59
[2021-05-31] MEDS ORDERED: AMOXICILLIN/K CLAV 875/125MG TABLET. PO SCH (12:00)
[2021-05-31] MEDS ORDERED: SODIUM POLYSTYRENE SULFON/SORB 15 GM/60 ML ORAL.SUSP. PO ONE (12:00)
--- NOTE | 2021-05-31 12:04 | PDOC ---
Provider Note Date of Service: DATE: 05/31/21 TIME: 12:03 Provider Note discharge summary dictated # [id number] Justifications for Admission Other Justification SID HUNG MD May 31, 2021 12:04
--- NOTE | 2021-05-31 12:29 | NUR ---
Spoke to the patient in regards to her discharge orders stating she needs HH and a roller walker. She refused both of them with this nurse present, PT, and Dr Chapa. Education performed by this nurse. PT is giving her home exercises to do by herself since she refused HH. Dr Chapa aware.
--- NOTE | 2021-05-31 12:54 | DS ---
DATE OF DISCHARGE: 05/31/2021 LOCATION: She is in room 430. GOVERNMENT MINISTER: Dr. Abarca. FINAL DIAGNOSES: 1. Chronic obstructive pulmonary disease with acute exacerbation. 2. Acute bronchitis. 3. Lumbar strain. 4. Diabetes mellitus type 2 with steroid-induced hyperglycemia. 5. Hypertension. 6. Hyperlipidemia. 7. Obstructive sleep apnea. 8. Morbid obesity. 9. Leukocytosis secondary to steroids. HOSPITAL COURSE: The patient is a 70-year-old morbidly obese white female with a history of diabetes mellitus type 2, hypertension, hyperlipidemia, obstructive sleep apnea treated with CPAP, who has chronic obstructive pulmonary disease with a 5-day history of shortness of breath and low back pain in the lumbar muscles. She had a cough productive of yellow sputum and also clear sputum and sought help at the [facility] Emergency Room by Paramedics as she could not catch her breath. COVID-19 vaccinations and flu screens were negative. She was diagnosed with a COPD exacerbation as her chest x-ray showed no acute abnormality. She was given 10 mg of dexamethasone IV, Rocephin IV in the Emergency Room and her IV Rocephin was continued and she was switched to IV Solu-Medrol, seen in consultation by Dr. Abarca who concurred with COPD exacerbation. The patient's breathing is much better. She complained of lumbar strain in the left lower back. X-ray of lumbar spine did show lumbar spondylosis. X-ray of the left ribs was negative for fracture and her back pain has been improved, treated with cyclobenzaprine 5 mg t.i.d. p.r.n. She was moving around a lot better and was seen by physical therapy and occupational therapy and the physical therapist recommended home health with a roller walker and I discussed with the nursing about a prescription for a roller walker. She was told to make an appointment to see Dr. Chapa in the office next week and also to follow up with sort of home health with home physical therapy and occupational therapy. She also had hyperkalemia today and we added that to the diagnoses. Potassium was 5.5, but her renal function was okay. She does take losartan and I discontinued the losartan. Her BUN was 31, creatinine 0.9, blood sugar was 131 before breakfast and 160 before lunch. Hemoglobin was 10.8 on admission, 9.6 today and now was with IV hydration. She can add anemia to the diagnoses also and hyperkalemia. Losartan was discontinued. She was given 15 grams of Kayexalate, ordered today. She will continue with her amlodipine as she was taking prior to admission 5 mg every day for her hypertension and stopped the losartan. She was dismissed on amlodipine 5 mg every day, Augmentin 875 mg b.i.d. for 5 days, cyclobenzaprine 5 mg t.i.d. p.r.n. muscle spasm, 30 tablets, no refill, prednisone taper 40 mg every day for 2 days, 30 mg every day for 2 days, 20 mg every day for 2 days, 10 mg every day for 2 days and then off the prednisone. She will also be dismissed on aspirin 81 mg every day, pravastatin 40 mg every day and Anoro Ellipta, which she has at home, 62.5 mcg 1 puff every day. She will make an appointment to see Dr. Chapa in the office next week. IFRAH/ARNOLDO DR: Cecy TID: [id number]
--- NOTE | 2021-05-31 14:02 | NUR ---
Patient left with her around 1400. Discharge education completed by this nurse, therapy, and Dr Chapa prior to dismissal. Patient still refusing to get a walker while at the facility today, and is still refusing HH. NO IV access present. Medication list gone over in detail. Scripts given to patient per Dr Chapa. No concerns noted at discharge.
--- NOTE | 2021-05-31 14:36 | RAD ---
CLINICAL HISTORY: Reason: ABDOMINAL AORTIC ANEURYSM PT ATE LUNCH 1130 DO IN PM / Spl. Instructions: / History: COMPARISON: None available. TECHNIQUE: The abdominal aorta was examined from the diaphragm to the proximal common iliac arteries. FINDINGS: The proximal abdominal aorta is obscured by midline bowel gas. The mid abdominal aorta measures 2.3 centimeters in AP dimension. The distal abdominal aorta measures 1.8 cm in AP dimension. IMPRESSION: 1. Proximal aorta is not seen. 2. The mid and distal aorta is normal in caliber. Electronically signed by: Rolando Mendosa MD (05/31/2021 2:34 PM) [facility]
[2021-06-01] MEDS ORDERED: predniSONE 20 MG TABLET PO SCH (09:00)
== END 2021-05-31 14:04 | disposition home health service (06) | DRG 202 ==
LOC: ER 15:13 → 5 NORTH 17:50 → 4 NORTH 05-30 02:25
PROVIDERS: ADMIT Internal Medicine; ATTEND Internal Medicine
DX: J20.9 Acute bronchitis, unspecified (principal); Z68.41 Body mass index [BMI] 40.0-44.9, adult; D64.9 Anemia, unspecified; E11.65 Type 2 diabetes mellitus with hyperglycemia; E66.01 Morbid (severe) obesity due to excess calories; E78.5 Hyperlipidemia, unspecified; E87.5 Hyperkalemia; G47.33 Obstructive sleep apnea (adult) (pediatric); G89.29 Other chronic pain; I10 Essential (primary) hypertension; I71.4 Abdominal aortic aneurysm, without rupture; J43.9 Emphysema, unspecified; M47.816 Spondylosis without myelopathy or radiculopathy, lumbar region; S39.012A Strain of muscle, fascia and tendon of lower back, initial encounter; T38.0X5A Adverse effect of glucocorticoids and synthetic analogues, initial encounter; Z20.822 Contact with and (suspected) exposure to COVID-19; Z79.82 Long term (current) use of aspirin; Z87.891 Personal history of nicotine dependence; Z90.49 Acquired absence of other specified parts of digestive tract; Z90.710 Acquired absence of both cervix and uterus; M19.90 Unspecified osteoarthritis, unspecified site; Z88.8 Allergy status to other drugs, medicaments and biological substances
CPT/HCPCS: 36415; 71045; 71100; 72100; 76770; 80048; 80053; 82962; 83605; 84484; 85007; 85025; 85379; 87040; 87426; 87804; 93005; 94640; 96374; 96375; J0696; J1100; J1650; J1815; J2920; J2930; J3010; J3490; U0003; U0005; 97110-GP; 97116-GP; 97530-GP; 97535-GO; 99285-25; G0378